=== PATIENT | male | born 1950 | race Caucasian/White ===

== ENCOUNTER → 2017-05-22 | Outpatient (CLI) | payer MEDICARE, OTHER ==
--- NOTE | 2017-05-22 08:08 | CT ---
EXAMINATION TYPE: CT chest wo con DATE OF EXAM: 05/22/2017 COMPARISON: NONE HISTORY: SOB, cough CT DLP: 362.[address] of the chest was performed with lung and mediastinal window settings submitted. The la ck of contrast limits evaluation of the vascular, mediastinal and parenchymal structures including th e upper abdomen. 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 Mild patchy density right lower lobe may reflect underlying pneumoni a. Scattered areas of linear parenchymal scarring. MEDIASTINUM/SARA: Ascending thoracic aortic aneurysm measuring 4.3 cm AP dimension. Mild atheromatous changes noted. Mi ld cardiomegaly seen. No evidence for mediastinal mass. No lymph nodes greater than 1cm. UPPER ABDOMEN: Right-sided renal calculi. Low attenuating lesion left kidney may reflect cysts. OTHER: Scoliotic curvature thoracic spine. IMPRESSION: 1. Patchy density right lower lobe may reflect underlying pneumonia. 2. Asbestos related pleural disease. 3. Ascending thoracic aortic aneurysm.
== END | disposition home or self-care (01) ==
LOC: RADCTMAIN 06:30
PROVIDERS: ATTEND Internal Medicine Pulmonary Disease
DX: J94.8 Other specified pleural conditions (principal); I71.2 Thoracic aortic aneurysm, without rupture; R91.8 Other nonspecific abnormal finding of lung field; R05 Cough
CPT/HCPCS: 71250

== ENCOUNTER 2018-01-16 21:59 | Inpatient (IN) | payer MEDICARE, OTHER ==
[2018-01-16 22:16] LABS: Glucose,Whole Blood 127 mg/dL (75-99)
[2018-01-16] MEDS ORDERED: NITROGLYCERIN SL TABS 0.4 MG TAB SUBLINGUAL PRN (22:27)
[2018-01-16] MEDS ORDERED: ASPIRIN 81 MG PO STA (22:27)
[2018-01-16] MEDS ORDERED: HEPARIN SODIUM,PORCINE 5,000 UNIT/ML 1 ML VIAL IV STA (22:27)
--- NOTE | 2018-01-16 22:29 | ED ---
Weakness HPI - General Chief complaint: Weakness Stated complaint: poss stroke Time Seen by Provider: 01/16/18 22:18 Source: patient, family Mode of arrival: wheelchair Limitations: no limitations - History of Present Illness Initial comments: This patient is 67-year-old man who comes to the hospital because she was having generalized weakness. The patient states that had started earlier today. He also however was noting some substernal chest pain that is been going on since late morning. Patient Denies previous known heart disease. The patient is not able to characterize the pain well. He had not noted any worsening or relieving factors. The pain had been up to moderate intensity however now mild. MD Complaint: generalized weakness -: hour(s) Location: generalized Severity: moderate Consistency: constant Improves with: none Worsens with: none Associated Symptoms: chest pain - Related Data Home Medications Medication Instructions Recorded Confirmed Albuterol Sulfate [Proair Hfa] 2 puff INHALATION RT-Q6H PRN 01/16/18 01/16/18 Ascorbic Acid [Vitamin C] 500 mg PO DAILY 01/16/18 01/16/18 Allergies Allergy/AdvReac Type Severity Reaction Status Date / Time No Known Allergies Allergy Verified 01/16/18 22:38 Review of Systems ROS Statement: Those systems with pertinent positive or pertinent negative responses have been documented in the HPI. ROS Other: All systems not noted in ROS Statement are negative. Constitutional: Reports: fever, weakness (Generalized). Denies: chills Respiratory: Denies: cough, dyspnea, wheezes, hemoptysis Cardiovascular: Reports: as per HPI, chest pain. Denies: palpitations, orthopnea, edema, syncope Gastrointestinal: Denies: abdominal pain, nausea, vomiting, diarrhea Genitourinary: Denies: dysuria, hematuria Musculoskeletal: Denies: back pain Skin: Denies: rash Neurological: Denies: headache, weakness, numbness Past Medical History Past Medical History: Prostate Disorder History of Any Multi-Drug Resistant Organisms: None Reported Past Surgical History: No Surgical Hx Reported Past Psychological History: No Psychological Hx Reported Smoking Status: Current every day smoker Past Alcohol Use History: None Reported Past Drug Use History: None Reported General Exam Limitations: no limitations General appearance: alert, in no apparent distress Head exam: Present: atraumatic Eye exam: Present: normal appearance. Absent: scleral icterus, conjunctival injection ENT exam: Present: normal oropharynx Neck exam: Present: normal inspection, full ROM Respiratory exam: Present: normal lung sounds bilaterally. Absent: respiratory distress, wheezes, rales, rhonchi, stridor Cardiovascular Exam: Present: regular rate, normal rhythm, systolic murmur ( Grade 2/6 systolic ejection murmur). Absent: diastolic murmur, rubs, gallop GI/Abdominal exam: Present: soft. Absent: distended, tenderness, guarding, rebound, mass Extremities exam: Present: normal inspection, normal capillary refill. Absent: pedal edema, calf tenderness Back exam: Present: normal inspection. Absent: CVA tenderness (R), CVA tenderness (L) Neurological exam: Present: alert, oriented X3, CN II-XII intact. Absent: motor sensory deficit Skin exam: Present: warm, dry, intact, normal color. Absent: rash Course Vital Signs 01/16/18 01/16/18 01/16/18 22:03 22:32 22:35 Temperature 100.6 F H 102.2 F H Pulse Rate 93 96 Respiratory 16 18 Rate Blood Pressure 110/70 115/63 O2 Sat by Pulse 96 98 Oximetry 01/16/18 01/16/18 01/16/18 22:40 22:49 22:53 Temperature Pulse Rate 90 90 95 Respiratory 18 18 18 Rate Blood Pressure 99/69 114/61 107/65 O2 Sat by Pulse 98 98 99 Oximetry - Reevaluation(s) Reevaluation #1: 01/16/18 23:00 Patient is 67-year-old man complaining of generalized weakness and has had some chest pain throughout the day. The patient's initial ECG is concerning for inferior lead ST elevations. There are also some septal ST depressions. There is no old ECG for comparison. Given the pain and ECG, I discussed the case with Dr. Rodriguez, the cellar pumper on-call and have activated the Double Cutter. On reevaluation, the patient is now stating he has had resolution of the pain. His repeat vital signs do show a fever, and I have added orders for lactic acid and started Rocephin as the patient may have an infiltrate on the chest x-ray. EKG Findings - EKG Comments: EKG Findings:: Patient's 12-lead ECG shows inferior ST elevations with depressions in V1 and V2. - EKG Results: EKG: interpreted by HAJA, sinus rhythm (Rate 96 bpm) - Blocks, Abrams, Hypertrophy, ST Abn: QRS axis and voltage: left axis deviation (-30 to -90) - AR, Pacemaker, Normal: Myocardial infarction: inferior AR (acute or recent) Medical Decision Making - Medical Decision Making Patient is 67-year-old man presenting with generalized weakness, but also with chest pain on the review of systems. The patient does appear to have STEMI criteria. Case discussed with cardiology and also with the admitting physician. Results discussed with patient and family. - Lab Data Result diagrams: 01/16/18 22:22 01/16/18 22:22 Lab Results 01/16/18 01/16/18 01/16/18 Range/Units 22:12 22:22 22:22 WBC 20.2 H (3.8-10.6) k/uL RBC 4.65 (4.30-5.90) m/uL Hgb 14.8 (13.0-17.5) gm/dL Hct 45.0 (39.0-53.0) % MCV 96.8 (80.0-100.0) fL MCH 31.8 (25.0-35.0) pg MCHC 32.8 (31.0-37.0) g/dL RDW 13.2 (11.5-15.5) % Plt Count 274 (150-450) k/uL Neutrophils % 86 % Lymphocytes % 5 % Monocytes % 6 % Eosinophils % 0 % Basophils % 0 % Neutrophils # 17.4 H (1.3-7.7) k/uL Lymphocytes # 1.0 (1.0-4.8) k/uL Monocytes # 1.3 H (0-1.0) k/uL Eosinophils # 0.0 (0-0.7) k/uL Basophils # 0.0 (0-0.2) k/uL PT (9.0-12.0) sec INR (<1.2) APTT (22.0-30.0) sec Sodium 137 (137-145) mmol/L Potassium 4.3 (3.5-5.1) mmol/L Chloride 101 (98-107) mmol/L Carbon Dioxide 26 (22-30) mmol/L Anion Gap 10 mmol/L BUN 21 H (9-20) mg/dL Creatinine 1.04 (0.66-1.25) mg/dL Est GFR (CKD-EPI)AfAm 85 (>60 ml/min/1.73 sqM) Est GFR (CKD-EPI)NonAf 73 (>60 ml/min/1.73 sqM) Glucose 113 H (74-99) mg/dL POC Glucose (mg/dL) 127 H (75-99) mg/dL POC Glu Tow Driver ID Griffin Gill Plasma Lactic Acid Rigo (0.7-2.0) mmol/L Calcium 9.1 (8.4-10.2) mg/dL Total Bilirubin 1.4 H (0.2-1.3) mg/dL AST 186 H (17-59) U/L ALT 46 (21-72) U/L Alkaline Phosphatase 75 (38-126) U/L Total Creatine Kinase (55-170) U/L CK-MB (CK-2) (0.0-2.4) ng/mL CK-MB (CK-2) Rel Index Troponin I (0.000-0.034) ng/mL Total Protein 6.7 (6.3-8.2) g/dL Albumin 3.9 (3.5-5.0) g/dL 01/16/18 01/16/18 01/16/18 Range/Units 22:22 22:22 22:22 WBC (3.8-10.6) k/uL RBC (4.30-5.90) m/uL Hgb (13.0-17.5) gm/dL Hct (39.0-53.0) % MCV (80.0-100.0) fL MCH (25.0-35.0) pg MCHC (31.0-37.0) g/dL RDW (11.5-15.5) % Plt Count (150-450) k/uL Neutrophils % % Lymphocytes % % Monocytes % % Eosinophils % % Basophils % % Neutrophils # (1.3-7.7) k/uL Lymphocytes # (1.0-4.8) k/uL Monocytes # (0-1.0) k/uL Eosinophils # (0-0.7) k/uL Basophils # (0-0.2) k/uL PT 10.9 (9.0-12.0) sec INR 1.1 (<1.2) APTT 27.2 (22.0-30.0) sec Sodium (137-145) mmol/L Potassium (3.5-5.1) mmol/L Chloride (98-107) mmol/L Carbon Dioxide (22-30) mmol/L Anion Gap mmol/L BUN (9-20) mg/dL Creatinine (0.66-1.25) mg/dL Est GFR (CKD-EPI)AfAm (>60 ml/min/1.73 sqM) Est GFR (CKD-EPI)NonAf (>60 ml/min/1.73 sqM) Glucose (74-99) mg/dL POC Glucose (mg/dL) (75-99) mg/dL POC Glu Tow Driver ID Plasma Lactic Acid Rigo 1.3 (0.7-2.0) mmol/L Calcium (8.4-10.2) mg/dL Total Bilirubin (0.2-1.3) mg/dL AST (17-59) U/L ALT (21-72) U/L Alkaline Phosphatase (38-126) U/L Total Creatine Kinase 822 H (55-170) U/L CK-MB (CK-2) 39.3 H (0.0-2.4) ng/mL CK-MB (CK-2) Rel Index 4.8 Troponin I 30.400 H* (0.000-0.034) ng/mL Total Protein (6.3-8.2) g/dL Albumin (3.5-5.0) g/dL Critical Care Time Critical Care Time: Yes (35 minutes) Disposition Clinical Impression: Acute ST elevation myocardial infarction (STEMI), Leukocytosis Disposition: ADMITTED IP TO THIS HOSP Condition: Serious
[2018-01-16] MEDS ORDERED: HEPARIN SOD,PORK IN 0.45% NACL 25,000 UNIT in 0.45% NACL 1 500ML.BAG IV SCH (22:30)
[2018-01-16] MEDS ORDERED: ACETAMINOPHEN TAB 325 MG TAB PO STA (22:36)
[2018-01-16] MEDS ORDERED: SODIUM CHLORIDE 0.9% 500 ML IV STA (22:36)
[2018-01-16 22:38] LABS: Basophils % (A) 0 %; Eosinophils % (A) 0 %; HGB 14.8 gm/dL (13.0-17.5); Lymphocytes % (A) 5 %; MCH 31.8 pg (25.0-35.0); MCHC 32.8 g/dL (31.0-37.0); MCV 96.8 fL (80.0-100.0); Mean Platelet Volume 6.5; Monocytes # (A) 1.3 k/uL (0-1.0); Monocytes % (A) 6 %; Neutrophils # (A) 17.4 k/uL (1.3-7.7); Neutrophils % (A) 86 %; Platelet Count 274 k/uL (150-450); RBC 4.65 m/uL (4.30-5.90); RDW 13.2 % (11.5-15.5); WBC 20.2 k/uL (3.8-10.6)
[2018-01-16 22:45] LABS: Albumin 3.9 g/dL (3.5-5.0); Calcium 9.1 mg/dL (8.4-10.2); Potassium 4.3 mmol/L (3.5-5.1); Total Bilirubin 1.4 mg/dL (0.2-1.3); Total Protein 6.7 g/dL (6.3-8.2)
[2018-01-16 22:48] LABS: INR 1.1 (<1.2); Partial Thromboplastin Time 27.2 sec (22.0-30.0); Prothrombin Time 10.9 sec (9.0-12.0)
--- NOTE | 2018-01-16 22:49 | XR ---
EXAMINATION TYPE: XR chest 1V portable DATE OF EXAM: 01/16/2018 COMPARISON: NONE HISTORY: Chest pain TECHNIQUE: Single frontal view of the chest is obtained. FINDINGS: There is blunting of costophrenic angles. There is pulmonary vascular congestion. There is some infiltrate at the lung bases. There are chest leads. IMPRESSION: There is probably mild heart failure. Small pleural effusions and mild basilar pulmonary infiltrates.
[2018-01-16] MEDS ORDERED: cefTRIAXone IN SWFI 1,000 MG/10 ML SYRINGE IVP STA (22:52)
[2018-01-16] MEDS ORDERED: LIDOCAINE 1% INJ 10MG/ML (20 ML MDV) ONE (22:57)
[2018-01-16 23:09] LABS: Creatine Kinase MB 39.3 ng/mL (0.0-2.4)
[2018-01-16] MEDS ORDERED: VERAPAMIL 2.5 MG/ML 2 ML AMP ONE (23:09)
[2018-01-16 23:15] LABS: Troponin I 30.4 ng/mL (0.000-0.034)
[2018-01-16] MEDS ORDERED: LIDOCAINE 1% INJ 10MG/ML (20 ML MDV) SQ ONE (23:15)
[2018-01-16] MEDS ORDERED: VERAPAMIL SYRINGE (5 MG/10 ML) INTRAARTER ONE (23:18)
[2018-01-16] MEDS ORDERED: SODIUM CHLORIDE 0.9% 1,000 ML IV ONE (23:19)
[2018-01-16] MEDS ORDERED: BIVALIRUDIN 250 MG in SODIUM CHLORIDE 0.9% 50 ML IV ONE (23:25)
[2018-01-16] MEDS ORDERED: BIVALIRUDIN BOLUS 250 MG/50 ML IV ONE (23:25)
[2018-01-16] MEDS ORDERED: TICAGRELOR 90 MG TAB ONE (23:27)
[2018-01-16] MEDS ORDERED: TICAGRELOR 90 MG TAB PO ONE (23:30)
[2018-01-16] MEDS ORDERED: IOPAMIDOL-370 125ML BTL INJ ONE (23:44)
[2018-01-16] MEDS ORDERED: NITROGLYCERIN 1000MCG/10ML SYRINGE INTRACORON ONE (23:45)
[2018-01-17] MEDS ORDERED: IOPAMIDOL-370 100ML BTL INJ ONE ×2 (00:11)
[2018-01-17] MEDS ORDERED: ATROPINE SULFATE 0.1 MG/ML 10ML SYRINGE IV PRN (00:12)
[2018-01-17] MEDS ORDERED: ZOLPIDEM 5 MG TAB PO PRN (00:12)
[2018-01-17] MEDS ORDERED: RX INFO: IV CONTRAST WAS GIVEN 1 EACH MISC MISCELLANE PRN (00:12)
[2018-01-17] MEDS ORDERED: NITROGLYCERIN SL TABS 0.4 MG TAB SUBLINGUAL PRN (00:12)
[2018-01-17] MEDS ORDERED: MAG HYDROX/AL HYDROX/SIMETH 30 ML CUP PO PRN (00:12)
[2018-01-17] MEDS ORDERED: SODIUM CHLORIDE 0.9% 1,000 ML IV SCH (00:15)
[2018-01-17 00:36] LABS: Glucose,Whole Blood 123 mg/dL (75-99)
[2018-01-17 01:43] VITALS: BMI 27.3
[2018-01-17 05:10] LABS: Basophils # (A) 0.1 k/uL (0-0.2); Basophils % (A) 0 %; Eosinophils % (A) 0 %; HGB 14.1 gm/dL (13.0-17.5); Lymphocytes # (A) 1.6 k/uL (1.0-4.8); Lymphocytes % (A) 9 %; MCH 31.3 pg (25.0-35.0); MCHC 31.4 g/dL (31.0-37.0); MCV 99.5 fL (80.0-100.0); Mean Platelet Volume 6.5; Monocytes # (A) 1.4 k/uL (0-1.0); Monocytes % (A) 8 %; Neutrophils # (A) 13.9 k/uL (1.3-7.7); Neutrophils % (A) 80 %; Platelet Count 252 k/uL (150-450); RBC 4.52 m/uL (4.30-5.90); RDW 13.3 % (11.5-15.5); WBC 17.5 k/uL (3.8-10.6)
[2018-01-17 05:43] LABS: Creatine Kinase MB 30.4 ng/mL (0.0-2.4)
--- NOTE | 2018-01-17 06:48 | CONS ---
CONSULTATION Mr. Nix is a 67-year-old male who was scheduled to be seen by Dr. Urias for the first time in a few weeks who presented to the emergency room with generalized weakness and episode of chest discomfort. The discomfort started today and at the time my evaluation, it got better. His EKG showed ST-segment elevation in the inferior leads with QS pattern as well as ST depression in the anterior precordial leads with prominent R wave. The patient denies any prior cardiac history, although he has not seen a physician in a while. He denies any prior episode of chest discomfort. He denies any associated dyspnea, palpitation, or syncope. He has occasional peripheral edema. No PND or orthopnea. His coronary risk factors positive for smoking. He denies any history of hypertension or diabetes and his lipid profile is not available. His medications are none. SOCIAL HISTORY: He drinks caffeine, but no alcohol. REVIEW OF SYSTEMS: RESPIRATORY SYSTEM: No history of documented asthma, emphysema or bronchitis. GI SYSTEM: No recent GI bleeding. No peptic ulcer disease. SYSTEM: No dysuria or hematuria. NERVOUS SYSTEM: No stroke or seizure. PHYSICAL EXAMINATION: A 67-year-old male, alert, oriented, in no apparent distress. Blood pressure 140/70 with the heart rate in the 90s. HEAD: Normocephalic. EYES: Sclerae anicteric. NECK: Good upstroke. No bruit. No jugular venous distention. LUNGS: Decreased air exchange. No wheezes. HEART: Regular rate and rhythm S1, S2. No S3. No rub. ABDOMEN: Soft, nontender. Positive bowel sounds. No organomegaly. EXTREMITIES: No edema. Intact distal pulses. EKG revealed sinus mechanism, rate of 94, left axis deviation, QS pattern in the inferior leads with early transition and ST depression in the anterior precordial leads consistent with inferoposterior myocardial infarction. IMPRESSION: 1. Acute inferior posterior myocardial infarction. According to the symptoms, the pain started today, although his EKG shows prominent Q wave. 2. Chronic tobacco use. RECOMMENDATION: In view of the presentation of his symptoms, I have recommended proceeding with cardiac catheterization to assess the status and guide the treatment. The rationale behind the procedure as well as risks and complications were discussed with the patient who is in full understanding and agreement. Thank you for this consult. We will follow with you. MMODL / IJN: [id number] /
--- NOTE | 2018-01-17 07:40 | CC ---
CARDIAC CATHETERIZATION REPORT Mr. Nix is a 67-year-old male with no prior documented history of coronary artery disease who presented to the emergency room with symptoms of chest discomfort and generalized weakness. His EKG was consistent with inferoposterior myocardial infarction. In view of that, recommendation was made regarding cardiac catheterization. The procedure as well as the risks and the complications were discussed with the patient who is in full understanding and agreement. Of note, the patient's troponin was over 30 on presentation. PROCEDURE: Patient was brought to recyclable materials sorter after receiving fentanyl and Benadryl and achieving moderate conscious sedated state. Using Xylocaine anesthesia in the Seldinger technique, a 6-Mosotho sheath was introduced in the right radial artery. Selective angiography of right coronary artery was performed using a 6-Mosotho FR3.5 guiding catheter. Subsequently angioplasty and stenting of the right coronary was performed. Following that, selective right and left angiography performed using 5-Mosotho 3.5 bend left Gypsy catheter. Images of the left coronary system was performed. Following that, a 5-Mosotho tight pigtail catheter introduced in the left ventricle and pressures were calculated. Following that, catheter and sheath were removed. Hemostasis was obtained with deployment of a TR band. There was no immediate complication. Patient was returned to his room in stable condition. FINDINGS: LEFT MAIN: This is a large-sized vessel trifurcating left circumflex, left anterior descending artery and ramus intermedius. Left main coronary artery has no evidence of obstructive coronary artery disease. LEFT ANTERIOR DESCENDING ARTERY: This is a large-sized vessel reaching to the apex with a wraparound apex segment giving rise to 2 diagonal branches of small to moderate caliber. The left anterior descending artery in mid segment at the takeoff of the second diagonal branch has a plaque of 20% to 30%. The rest of the vessel has no high- grade stenosis. LEFT CIRCUMFLEX: This is a nondominant vessel giving rise to a large obtuse marginal branch. The left circumflex and its branches have no evidence of obstructive coronary artery disease. RAMUS INTERMEDIUS: This is a large-sized vessel reaching to the apical lateral wall that has no evidence of high-grade stenosis. RIGHT CORONARY ARTERY: This is a large dominant vessel bifurcating distally PDA and posterolateral segment and branches. Prior to the bifurcation, there is a 99% stenosis with slow antegrade flow. LEFT VENTRICULOGRAM: Left ventriculogram is not performed. HEMODYNAMICS: There was no gradient across the aortic valve. The left ventricular end- diastolic pressure was 16 to 20 mmHg. CONCLUSION: 1. 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 2. Mild disease in the left anterior descending artery. RECOMMENDATION: In view of finding anatomy, I have recommended proceeding with angioplasty and stenting of the right coronary artery. The procedure as well as the risks and the complications were discussed with the patient who is in full understanding and agreement. MMODL / IJN: [id number] /
--- NOTE | 2018-01-17 07:49 | PTCA ---
PERCUTANEOUSTRANS CORORONARY ANGIOGRAPHY Mr. Nix is a 67-year-old male who presented with an acute inferoposterior myocardial infarction, underwent cardiac catheterization, was found to have a subtotally occluded right coronary artery. In view of that, recommendation was made regarding angioplasty and stenting. The procedure as well as the risks and the complications were discussed with the patient who is in full understanding and agreement. PROCEDURE: Using the 6-Moldovan FR3.5 guiding catheter, a 0.014 balanced medium weight J- wire was advanced to the distal right coronary artery. Subsequently a whisper 0.014 J wire was advanced across the lesion and positioned in the PLV. A 3.0 x 12 mm Trek balloon was advanced, but because of the poor backup, the wire, the balloon and the guiding catheter were removed and a 6-Moldovan right Ikari guiding catheter introduced into system. After cannulating the ostium of the right coronary artery, the 0.014 balanced medium weight J-wire was advanced in the system, positioned distally then the 0.014 whisper J-wire was advanced in position in the PLV. Following that, the 3.0 x 12 mm Trek balloon was advanced and 2 inflations at maximum of 8 atmospheres were done. Following that the balloon was removed and a 3.5 x 18 mm Xience Alpine stent was deployed, postdilated at 14 atmospheres. Following that, the balloon was removed and a 3.5 x 8 mm Xience Alpine stent was deployed distal to the first one, postdilated at 14 atmospheres. Subsequently, an inflation overlap segment at 16 atmospheres was done. Following that and after appropriate wait, the balloon and the guidewire were withdrawn back in the guiding catheter. Images were obtained and repeated. Those images reveal stable successful stenting. At that point, the guiding catheter, the balloon and the guidewire were removed. Images of the left coronary system as well measurement of the left ventricular end-diastolic pressure were obtained. Following that, catheter and sheath were removed. Hemostasis was obtained with deployment of a TR band. There was no immediate complication. Patient is returned to his room in stable condition. He had no chest discomfort at the end of the procedure and no significant new EKG changes. Of note, he received Angiomax per protocol as well as oral loading dose of Brilinta. RESULTS: Successful stenting of the distal right coronary artery with reduction of stenosis from 99% to 0%. RECOMMENDATION: Patient will be continued on aspirin, Brilinta, beta adam, and statin. The importances of dual antiplatelet treatment were discussed with the patient and his family who are in full understanding and agreement. Duration procedure is 53 minutes. ANTONIO / JIMY: [id number] / ROMERO
[2018-01-17 08:16] LABS: Anion Gap 9 mmol/L; Blood Urea Nitrogen 18 mg/dL (9-20); Calcium 8.3 mg/dL (8.4-10.2); Carbon Dioxide 20 mmol/L (22-30); Chloride 107 mmol/L (98-107); Glucose 97 mg/dL (74-99); Sodium 136 mmol/L (137-145)
[2018-01-17] MEDS: METOPROLOL TARTRATE 25 MG TAB PO SCH ×2 (08:55→20:05)
[2018-01-17] MEDS: ASPIRIN 81 MG PO SCH (08:55)
[2018-01-17] MEDS: SPIRONOLACTONE 25 MG TAB PO SCH (08:55)
[2018-01-17] MEDS: TICAGRELOR 90 MG TAB PO SCH ×2 (08:56→20:05)
--- NOTE | 2018-01-17 12:13 | ECHOF ---
Referral Reason:mi MEASUREMENTS -------- HEIGHT: 172.7 cm WEIGHT: 81.6 kg BP: 98/60 RVIDd: 2.6 cm (< 3.3) IVSd: 1.1 cm (0.6 - 1.1) LVIDd: 5.6 cm (3.9 - 5.3) LVPWd: 1.2 cm (0.6 - 1.1) IVSs: 1.7 cm LVIDs: 4.2 cm LVPWs: 1.7 cm LA Diam: 3.4 cm (2.7 - 3.8) LAESV Index (A-L): 29.41 ml/m Ao Diam: 3.7 cm (2.0 - 3.7) AV Cusp: 1.9 cm (1.5 - 2.6) MV EXCURSION: 17.354 mm (> 18.000) MV EF SLOPE: 91 mm/s (70 - 150) EPSS: 0.5 cm MV E Daniel: 0.96 m/s MV DecT: 185 ms MV A Daniel: 0.89 m/s MV E/A Ratio: 1.07 FINDINGS -------- Sinus rhythm. This was a technically good study. The left ventricular size is normal. There is borderline concentric left ventricular hypertrophy. Overall left ventricular systolic function is low-normal with, an EF between 50 - 55 %. Inferiorla teral Hypokinesis The right ventricle is normal in size. LA is midly dilated 29-33ml/m2. The right atrium is normal in size. There is mild aortic valve sclerosis. Mild mitral annular calcification present. There is trace mitral regurgitation. The tricuspid valve appears structurally normal. Trace/mild (physiologic) pulmonic regurgitation. The aortic root size is normal. Normal inferior vena cava with normal inspiratory collapse consistent with estimated right atrial pre ssure of 5 mmHg. The pericardium is normal. CONCLUSIONS -------- 1. Sinus rhythm. 2. This was a technically good study. 3. The left ventricular size is normal. 4. There is borderline concentric left ventricular hypertrophy. 5. Overall left ventricular systolic function is low-normal with, an EF between 50 - 55 %. 6. Inferiorlateral Hypokinesis 7. The right ventricle is normal in size. 8. LA is midly dilated 29-33ml/m2. 9. The right atrium is normal in size. 10. There is mild aortic valve sclerosis. 11. Mild mitral annular calcification present. 12. There is trace mitral regurgitation. 13. The tricuspid valve appears structurally normal. 14. Trace/mild (physiologic) pulmonic regurgitation. 15. The aortic root size is normal. 16. Normal inferior vena cava with normal inspiratory collapse consistent with estimated right atrial pressure of 5 mmHg. 17. The pericardium is normal. CHROME WORKER: Darlene Morales RDCS
[2018-01-17 12:20] LABS: Appearance,Urine Clear (Clear); Bilirubin,Urine Negative (Negative); Blood,Urine Trace (Negative); Color,Urine Yellow; Glucose,Urine (UA) Negative (Negative); Ketones,Urine Trace (Negative); Leukocyte Esterase,Urine Small (Negative); Mucus,Urine Rare /hpf; Nitrite,Urine Negative (Negative); PH, Urine 5.5 (5.0-8.0); Protein,Urine 1+ (Negative); RBC,Urine 2 /hpf (0-5); Specific Gravity,Urine 1.041 (1.001-1.035); Squamous Epithelial Cell,Urine <1 /hpf (0-4); Urobilinogen,Urine <2.0 mg/dL (<2.0); WBC,Urine 2 /hpf (0-5)
[2018-01-17] MEDS: LISINOPRIL 2.5 MG TAB PO SCH ×2 (12:43→22:44)
--- NOTE | 2018-01-17 12:46 | PN ---
PROGRESS NOTE Mr. Nix underwent stenting of right coronary artery by Dr. Rodriguez last night. He is in sinus rhythm, comfortable, resting. Right groin is clean and dry. S1, S2 heard normally. Lungs are clear. Abdomen and lower extremity exam unchanged. Plan is to continue current medications, increase activity and move him to telemetry tomorrow. He has no significant disease in other vessels. Troponins up to 30. We will get additional troponin later this evening. MMODL / IJN: [id number] /
[2018-01-17] MEDS: ATORVASTATIN 80 MG TAB PO SCH (20:05)
--- NOTE | 2018-01-17 20:23 | P.HPIM ---
History of Present Illness this is a pleasant 67 yo M [facility] of prostate problem who presents yesterday to ED complaining from generalized weakness, "my legs were crumbling". he had to use the walker to get into his car and wheelchair to get into the hospital. in the ED pt was found to have STEMI with inferior MO pt has been evaluated by cardiolgy root and he already underwent cardiac cath by the time i saw him in the ICU, pt was chest pain free, no dypsnea , no change in urine or bowel habits and no fever . his elida were 30,000 high and now are trending down to 24, 600. he was leukocytosis . CXR showing possible basilar infiltrates medication list;: asa, brilinta, lipitor and metoprolol , lisinopril and aldactone, ambien , nitroglycerin. Review of Systems CONSTITUTIONAL: No fever, no malaise, no fatigue. HEENT: No recent visual problems or hearing problems. Denied any sore throat. CARDIOVASCULAR: No orthopnea, PND, no palpitations, no syncope. PULMONARY: No shortness of breath, no cough, no hemoptysis. GASTROINTESTINAL: No diarrhea, no nausea, no vomiting, no abdominal pain. Normoactive bowel sounds. NEUROLOGICAL: No headaches, no weakness, no numbness. HEMATOLOGICAL: Denies any bleeding or petechiae. GENITOURINARY: Denies any burning micturition, frequency, or urgency. MUSCULOSKELETAL/RHEUMATOLOGICAL: Denies any joint pain, swelling, or any muscle pain. ENDOCRINE: Denies any polyuria or polydipsia. Past Medical History Past Medical History: Prostate Disorder History of Any Multi-Drug Resistant Organisms: None Reported Past Surgical History: No Surgical Hx Reported Past Psychological History: No Psychological Hx Reported Smoking Status: Current every day smoker Past Alcohol Use History: None Reported Past Drug Use History: None Reported Medications and Allergies Home Medications Medication Instructions Recorded Confirmed Type Albuterol Sulfate [Proair Hfa] 2 puff INHALATION RT-Q6H PRN 01/16/18 01/16/18 History Ascorbic Acid [Vitamin C] 500 mg PO DAILY 01/16/18 01/16/18 History Finasteride [Proscar] 5 mg PO DAILY 01/17/18 01/17/18 History Oxybutynin Chloride 5 mg PO BID 01/17/18 01/17/18 History Allergies Allergy/AdvReac Type Severity Reaction Status Date / Time No Known Allergies Allergy Verified 01/16/18 22:38 Physical Exam Vitals: Vital Signs Temp Pulse Resp BP Pulse Ox 01/17/18 10:00 82 20 94/60 98 01/17/18 09:00 97 32 H 102/58 97 01/17/18 08:00 99.5 F 98 29 H 111/80 98 01/17/18 07:00 99.5 F 78 10 L 97/60 99 01/17/18 06:00 76 15 87/59 98 01/17/18 05:00 73 20 98/60 97 01/17/18 04:00 98.2 F 71 17 89/61 99 01/17/18 03:00 74 21 82/59 97 01/17/18 02:00 64 7 L 81/56 99 01/17/18 01:00 81 11 L 104/58 96 01/17/18 00:32 89 01/16/18 22:53 95 18 107/65 99 01/16/18 22:49 90 18 114/61 98 01/16/18 22:40 90 18 99/69 98 01/16/18 22:35 102.2 F H 01/16/18 22:32 96 18 115/63 98 01/16/18 22:03 100.6 F H 93 16 110/70 96 Intake and Output 01/16/18 01/17/18 01/17/18 22:59 06:59 14:59 Intake Total 832.6 880 Output Total 900 650 Balance -67.4 230 Intake: IV 832.6 400 Sodium Chloride 0.9% 1, 400 400 000 ml @ 100 mls/hr IV . Q10H [facility] Rx#:[id number] Oral 480 Output: Urine 900 650 Other: Voiding Method Urinal Urinal Weight 81.647 kg 81.64 kg GENERAL: The patient is alert and oriented x3, not in any acute distress. Well developed, well nourished. HEENT: Pupils are round and equally reacting to light. EOMI. No scleral icterus. No conjunctival pallor. Normocephalic, atraumatic. No pharyngeal erythema. No thyromegaly. CARDIOVASCULAR: S1 and S2 present. No murmurs, rubs, or gallops. PULMONARY: Chest is clear to auscultation, no wheezing or crackles. ABDOMEN: Soft, nontender, nondistended, normoactive bowel sounds. No palpable organomegaly. MUSCULOSKELETAL: No joint swelling or deformity. EXTREMITIES: No cyanosis, clubbing, or pedal edema. NEUROLOGICAL: Gross neurological examination did not reveal any focal deficits. SKIN: No rashes. Results CBC & Chem 7: 01/17/18 04:20 01/17/18 04:20 Labs: Abnormal Lab Results - Last 24 Hours (Table) 01/16/18 01/16/18 01/16/18 Range/Units 22:12 22:22 22:22 WBC 20.2 H (3.8-10.6) k/uL Neutrophils # 17.4 H (1.3-7.7) k/uL Monocytes # 1.3 H (0-1.0) k/uL Sodium (137-145) mmol/L Carbon Dioxide (22-30) mmol/L BUN 21 H (9-20) mg/dL Glucose 113 H (74-99) mg/dL POC Glucose (mg/dL) 127 H (75-99) mg/dL Calcium (8.4-10.2) mg/dL Total Bilirubin 1.4 H (0.2-1.3) mg/dL AST 186 H (17-59) U/L Total Creatine Kinase (55-170) U/L CK-MB (CK-2) (0.0-2.4) ng/mL Troponin I (0.000-0.034) ng/mL 01/16/18 01/17/18 01/17/18 Range/Units 22:22 00:33 04:20 WBC (3.8-10.6) k/uL Neutrophils # (1.3-7.7) k/uL Monocytes # (0-1.0) k/uL Sodium (137-145) mmol/L Carbon Dioxide (22-30) mmol/L BUN (9-20) mg/dL Glucose (74-99) mg/dL POC Glucose (mg/dL) 123 H (75-99) mg/dL Calcium (8.4-10.2) mg/dL Total Bilirubin (0.2-1.3) mg/dL AST (17-59) U/L Total Creatine Kinase 822 H (55-170) U/L CK-MB (CK-2) 39.3 H 30.4 H (0.0-2.4) ng/mL Troponin I 30.400 H* 30.000 H* (0.000-0.034) ng/mL 01/17/18 01/17/18 Range/Units 04:20 04:20 WBC 17.5 H (3.8-10.6) k/uL Neutrophils # 13.9 H (1.3-7.7) k/uL Monocytes # 1.4 H (0-1.0) k/uL Sodium 136 L (137-145) mmol/L Carbon Dioxide 20 L (22-30) mmol/L BUN (9-20) mg/dL Glucose (74-99) mg/dL POC Glucose (mg/dL) (75-99) mg/dL Calcium 8.3 L (8.4-10.2) mg/dL Total Bilirubin (0.2-1.3) mg/dL AST (17-59) U/L Total Creatine Kinase (55-170) U/L CK-MB (CK-2) (0.0-2.4) ng/mL Troponin I (0.000-0.034) ng/mL Thrombosis Risk Factor Assmnt - Choose All That Apply Each Factor Represents 1 point: Acute MO Other Risk Factors: Yes Each Risk Factor Represents 2 Points: Age 61-74 years Other congenital or acquired thrombophilia - If yes, enter type in comment: No Thrombosis Risk Factor Assessment Total Risk Factor Score: 3 Thrombosis Risk Factor Assessment Level: Moderate Risk Assessment and Plan Assessment: inferior MO with STEMI, status post cardiac cath and stenting of RCA community acquired pna leukcytosis , secondary to above mild hyponatremia Plan: pt p/w inferoir wall STEMI and pna. c/w antibotic , ceftriaxone and doxycycline. c/w same treatment .. c/w symptomatic treatment . monitor vital and labs. cardiology input is appreciated , pt is s/p cardiac cath and he will need to continue on continue with asa, brilinta, statin and beta-adam. continue with lisinopril and aldactone for better blood pressure control. GI and DVT prophylaxis , ambien for insomina. further recommendation is based upon the clinical course of the pt DVT prophylaxis aspirin and brilinta GI prophylaxis pepcid
[2018-01-17] MEDS: DOXYCYCLINE 100 MG in SODIUM CHLORIDE 0.9% 100 ML IVPB SCH (21:39)
[2018-01-17] MEDS: FAMOTIDINE 20 MG/2 ML VIAL IV SCH (21:39)
[2018-01-18] MEDS ORDERED: DEXTROSE 5%-0.9% NACL 1,000 ML IV SCH (00:30)
[2018-01-18] MEDS ORDERED: ACETAMINOPHEN TAB 325 MG TAB PO PRN (02:09)
[2018-01-18 03:34] LABS: Basophils % (A) 0 %; Eosinophils # (A) 0.1 k/uL (0-0.7); Eosinophils % (A) 1 %; HCT 40.1 % (39.0-53.0); HGB 12.9 gm/dL (13.0-17.5); Lymphocytes # (A) 1.6 k/uL (1.0-4.8); Lymphocytes % (A) 11 %; MCH 31.9 pg (25.0-35.0); MCHC 32.2 g/dL (31.0-37.0); Mean Platelet Volume 6.4; Monocytes # (A) 0.9 k/uL (0-1.0); Monocytes % (A) 6 %; Neutrophils % (A) 80 %; Platelet Count 258 k/uL (150-450); RBC 4.05 m/uL (4.30-5.90); RDW 13.4 % (11.5-15.5)
[2018-01-18 03:44] LABS: ALT 36 U/L (21-72); AST 77 U/L (17-59); Albumin 2.7 g/dL (3.5-5.0); Alkaline Phosphatase 64 U/L (38-126); Anion Gap 5 mmol/L; Bilirubin, Delta 0.3 mg/dL (0.0-0.2); Bilirubin,Unconjugated 0.4 mg/dL (0.0-1.1); Blood Urea Nitrogen 13 mg/dL (9-20); Carbon Dioxide 22 mmol/L (22-30); Chloride 108 mmol/L (98-107); Cholesterol 112 mg/dL (<200); Glucose 118 mg/dL (74-99); HDL Cholesterol 31 mg/dL (40-60); LDL Cholesterol,Calculated 64 mg/dL (0-99); Magnesium 1.9 mg/dL (1.6-2.3); Potassium 3.9 mmol/L (3.5-5.1); Sodium 135 mmol/L (137-145); Total Bilirubin 0.7 mg/dL (0.2-1.3); Triglycerides 85 mg/dL (<150)
[2018-01-18 04:32] LABS: Appearance,Urine Clear (Clear); Bilirubin,Urine Negative (Negative); Blood,Urine Negative (Negative); Color,Urine Yellow; Glucose,Urine (UA) Negative (Negative); Ketones,Urine Negative (Negative); Leukocyte Esterase,Urine Negative (Negative); Nitrite,Urine Negative (Negative); Protein,Urine Trace (Negative); Specific Gravity,Urine 1.012 (1.001-1.035); Urobilinogen,Urine <2.0 mg/dL (<2.0)
[2018-01-18] MEDS ORDERED: Potassium Replacement Protocol 1 EACH MISC MISCELLANE PRN (05:23)
[2018-01-18] MEDS ORDERED: Magnesium Replacement Protocol 1 EACH MISC MISCELLANE PRN (05:23)
[2018-01-18] MEDS: MAGNESIUM SULFATE-D5W PMX 1 GM in DEXTROSE/WATER 1 100ML.BAG IVPB SCH ×2 (05:43→07:23)
[2018-01-18] MEDS ORDERED: POTASSIUM CHLORIDE ER 20 MEQ TAB.ER PO SCH (07:00)
--- NOTE | 2018-01-18 07:16 | XR ---
EXAMINATION TYPE: XR chest 1V portable DATE OF EXAM: 01/18/2018 CLINICAL HISTORY: Difficulty breathing progress study. Recent STEMI. TECHNIQUE: Single AP portable upright view of the chest is obtained. COMPARISON: Chest x-ray from [address] chest May 22, 2017 FINDINGS: Cardiomegaly is redemonstrated with slightly ectatic thoracic aorta causing mass effect on the trachea that has transverse diameter narrowing unchanged from prior. There is background chronic parenchymal change with patchy back basilar scarring and/or atelectasis. There is no new suspicious focal airspace opacity, pleural effusion, or pneumothorax seen bilaterally. Osseous structures are in tact. IMPRESSION: Overall stable findings, chronic changes and cardiomegaly with patchy bibasilar scarrin g and/or atelectasis. No suspicious focal infiltrate or effusions currently.
[2018-01-18] MEDS: METOPROLOL TARTRATE 25 MG TAB PO SCH ×2 (08:11→20:53)
[2018-01-18] MEDS: ASPIRIN 81 MG PO SCH (08:11)
[2018-01-18] MEDS: LISINOPRIL 2.5 MG TAB PO SCH (08:11)
[2018-01-18] MEDS: FAMOTIDINE 20 MG/2 ML VIAL IV SCH ×2 (08:11→20:53)
[2018-01-18] MEDS: SPIRONOLACTONE 25 MG TAB PO SCH (08:12)
[2018-01-18] MEDS: TICAGRELOR 90 MG TAB PO SCH ×2 (08:12→21:40)
[2018-01-18] MEDS: DOXYCYCLINE 100 MG in SODIUM CHLORIDE 0.9% 100 ML IVPB SCH ×2 (08:16→21:40)
[2018-01-18] MEDS: SODIUM CHLORIDE 0.9% 1,000 ML IV SCH (08:20)
--- NOTE | 2018-01-18 10:20 | PN ---
PROGRESS NOTE This gentleman presented with inferior ST-elevation SC. He is doing well post procedure. His ejection fraction is about 50% or so with inferolateral hypokinesia. Vitals signs are stable. He had some question of hypotension with lisinopril. I am recommending that we cut the lisinopril down to 2.5 mg daily. We will put him on 0.9 saline at 50 mL/hour and move him to telemetry unit. His right groin is clean and dry. Vitals are stable. No JVD or carotid bruit. S1, S2 heard normally. Lungs are clear. Abdominal and lower extremity exam otherwise is unchanged. Patient can be moved to telemetry. MMODL / IJN: [id number] /
[2018-01-18] MEDS: FINASTERIDE 5 MG TAB PO SCH (18:53)
[2018-01-18] MEDS: ATORVASTATIN 80 MG TAB PO SCH (20:53)
--- NOTE | 2018-01-18 21:06 | P.PN ---
Subjective this is a pleasant 67 yo M [facility] of prostate problem who presents yesterday to ED complaining from generalized weakness, "my legs were crumbling". he had to use the walker to get into his car and wheelchair to get into the hospital. in the ED pt was found to have STEMI with inferior VT pt has been evaluated by cardiolgy root and he already underwent cardiac cath by the time i saw him in the ICU, pt was chest pain free, no dypsnea , no change in urine or bowel habits and no fever . his elida were 30,000 high and now are trending down to 24, 600. he was leukocytosis . CXR showing possible basilar infiltrates 01/18/2018 pt lying in bed comfortable , feeling a little better regarding his weakness, no leg pain , no chest pain or dyspnea. pt is still has fever , leukocytosis is improving from 17.5 to 15K , pt does not have over resp s/s , not dyspeic, has some dry cough but sporadic, pt is on ceftriaxone and doxycycline, we will call ID consult . he is on iv fluids Objective - Vital Signs Vital signs: Vital Signs Temp 97.5 F L 01/18/18 15:39 Pulse 82 01/18/18 15:39 Resp 16 01/18/18 15:39 BP 121/73 01/18/18 15:39 Pulse Ox 97 01/18/18 15:39 Intake & Output 01/18/18 01/18/18 01/19/18 06:59 18:59 06:59 Intake Total 450 500 Output Total 500 600 Balance -50 -100 Weight 82 kg Intake: IV 450 500 Dextrose 5%-0.9% NaCl 1, 300 150 000 ml @ 75 mls/hr IV . [id number] [facility] Rx#:[id number] Doxycycline 100 mg In 100 100 Sodium Chloride 0.9% 100 ml @ 66.67 mls/hr IVPB Q12HR [facility] Rx#:[id number] Sodium Chloride 0.9% 1, 200 000 ml @ 50 mls/hr IV . Q20H [facility] Rx#:[id number] cefTRIAXone 1,000 mg In 50 50 Sodium Chloride 0.9% 50 ml @ 100 mls/hr IVPB Q24HR [facility] Rx#:[id number] Output: Urine 500 600 Other: Voiding Method Urinal Urinal # Voids 1 0 - Exam GENERAL: The patient is alert and oriented x3, not in any acute distress. Well developed, well nourished. HEENT: Pupils are round and equally reacting to light. EOMI. No scleral icterus. No conjunctival pallor. Normocephalic, atraumatic. No pharyngeal erythema. No thyromegaly. CARDIOVASCULAR: S1 and S2 present. No murmurs, rubs, or gallops. PULMONARY: Chest is clear to auscultation, no wheezing or crackles. ABDOMEN: Soft, nontender, nondistended, normoactive bowel sounds. No palpable organomegaly. MUSCULOSKELETAL: No joint swelling or deformity. EXTREMITIES: No cyanosis, clubbing, or pedal edema. NEUROLOGICAL: Gross neurological examination did not reveal any focal deficits. SKIN: No rashes. - Labs CBC & Chem 7: 01/18/18 03:12 01/18/18 03:12 Labs: Abnormal Lab Results - Last 24 Hours (Table) 01/18/18 01/18/18 01/18/18 Range/Units 03:12 03:12 04:20 WBC 15.0 H (3.8-10.6) k/uL RBC 4.05 L (4.30-5.90) m/uL Hgb 12.9 L (13.0-17.5) gm/dL Neutrophils # 12.0 H (1.3-7.7) k/uL Sodium 135 L (137-145) mmol/L Chloride 108 H (98-107) mmol/L Glucose 118 H (74-99) mg/dL Calcium 8.0 L (8.4-10.2) mg/dL Delta Bilirubin 0.3 H (0.0-0.2) mg/dL AST 77 H (17-59) U/L Total Protein 5.0 L (6.3-8.2) g/dL Albumin 2.7 L (3.5-5.0) g/dL HDL Cholesterol 31 L (40-60) mg/dL Urine Protein Trace H (Negative) Microbiology - Last 24 Hours (Table) 01/16/18 22:22 Blood Culture - Preliminary Blood No Growth after 24 hours Assessment and Plan Assessment: inferior VT with STEMI, status post cardiac cath and stenting of RCA community acquired pna, call ID consult leukcytosis , secondary to above mild hyponatremia elevated liver enz is improving Plan: pt p/w inferoir wall STEMI and pna. c/w antibotic , ceftriaxone and doxycycline. c/w same treatment .. c/w symptomatic treatment . monitor vital and labs. cardiology input is appreciated , pt is s/p cardiac cath and he will need to continue on continue with asa, brilinta, statin and beta-adam. continue with lisinopril and aldactone for better blood pressure control. ID consult , pt is on abx for sepsis, GI and DVT prophylaxis , ambien for insomina. further recommendation is based upon the clinical course of the pt DVT prophylaxis aspirin and brilinta GI prophylaxis pepcid
[2018-01-19] MEDS: SODIUM CHLORIDE 0.9% 1,000 ML IV SCH (02:39)
[2018-01-19 06:05] LABS: Basophils % (A) 0 %; Eosinophils # (A) 0.2 k/uL (0-0.7); Eosinophils % (A) 2 %; HGB 12.7 gm/dL (13.0-17.5); Lymphocytes # (A) 1.3 k/uL (1.0-4.8); Lymphocytes % (A) 10 %; MCH 30.4 pg (25.0-35.0); MCV 97.9 fL (80.0-100.0); Mean Platelet Volume 6.4; Monocytes # (A) 0.7 k/uL (0-1.0); Monocytes % (A) 5 %; Neutrophils # (A) 10.7 k/uL (1.3-7.7); Neutrophils % (A) 81 %; Platelet Count 314 k/uL (150-450); RBC 4.19 m/uL (4.30-5.90); RDW 13.2 % (11.5-15.5); WBC 13.2 k/uL (3.8-10.6)
[2018-01-19 06:19] LABS: ALT 36 U/L (21-72); AST 49 U/L (17-59); Alkaline Phosphatase 70 U/L (38-126); Anion Gap 6 mmol/L; Bilirubin, Delta 0.4 mg/dL (0.0-0.2); Bilirubin,Unconjugated 0.4 mg/dL (0.0-1.1); Blood Urea Nitrogen 11 mg/dL (9-20); Calcium 8.3 mg/dL (8.4-10.2); Carbon Dioxide 21 mmol/L (22-30); Chloride 109 mmol/L (98-107); Glucose 100 mg/dL (74-99); Potassium 4.2 mmol/L (3.5-5.1); Sodium 136 mmol/L (137-145); Total Bilirubin 0.8 mg/dL (0.2-1.3); Total Protein 5.5 g/dL (6.3-8.2)
[2018-01-19] MEDS: FAMOTIDINE 20 MG/2 ML VIAL IV SCH (09:08)
[2018-01-19] MEDS: ASPIRIN 81 MG PO SCH (09:08)
[2018-01-19] MEDS: LISINOPRIL 2.5 MG TAB PO SCH (09:09)
[2018-01-19] MEDS: METOPROLOL TARTRATE 25 MG TAB PO SCH ×2 (09:09→21:22)
[2018-01-19] MEDS: SPIRONOLACTONE 25 MG TAB PO SCH (09:09)
[2018-01-19] MEDS: FINASTERIDE 5 MG TAB PO SCH (09:09)
[2018-01-19] MEDS: TICAGRELOR 90 MG TAB PO SCH ×2 (09:10→21:22)
[2018-01-19] MEDS: DOXYCYCLINE 100 MG in SODIUM CHLORIDE 0.9% 100 ML IVPB SCH ×2 (09:13→21:29)
--- NOTE | 2018-01-19 12:11 | P.PN ---
Subjective Progress Note Date: 01/19/18 This is a 67-year-old gentleman who presented to the hospital with an ST elevation myocardial infarction underwent catheterization and was found to have a subtotally occluded right coronary artery patient underwent angioplasty and stenting. Echocardiogram with Doppler study was performed which revealed an ejection fraction of 50-55%. Blood pressure 110/70, heart rate in the 70s, 96% on room air, temperature 99.2. White blood cell count 13.2, hemoglobin 12.7 , platelet count 314. Sodium 136, potassium 4.2, BUN 11, creatinine 0.7. Patient was seen and examined this morning, he was mildly confused, taking off his monitor and things like that. His was at bedside. Objective - Vital Signs Vital signs: Vital Signs Temp 99.2 F 01/19/18 08:00 Pulse 79 01/19/18 08:00 Resp 16 01/19/18 11:49 BP 111/71 01/19/18 08:00 Pulse Ox 96 01/19/18 08:00 Intake & Output 01/18/18 01/19/18 01/19/18 18:59 06:59 18:59 Intake Total 500 600 240 Output Total 600 250 Balance -100 350 240 Weight 83.8 kg Intake: IV 500 600 Dextrose 5%-0.9% NaCl 1, 150 000 ml @ 75 mls/hr IV . [id number] [facility] Rx#:[id number] Doxycycline 100 mg In 100 100 Sodium Chloride 0.9% 100 ml @ 66.67 mls/hr IVPB Q12HR [facility] Rx#:[id number] Sodium Chloride 0.9% 1, 200 500 000 ml @ 50 mls/hr IV . Q20H [facility] Rx#:[id number] cefTRIAXone 1,000 mg In 50 Sodium Chloride 0.9% 50 ml @ 100 mls/hr IVPB Q24HR [facility] Rx#:[id number] Oral 240 Output: Urine 600 250 Other: Voiding Method Urinal Urinal Urinal # Voids 0 1 - Exam PHYSICAL EXAMINATION: GENERAL: 67-year-old gentleman in no acute distress at the time of my examination HEENT: Head is atraumatic, normocephalic. Pupils equal, round. Sclera anicteric. Conjunctiva are clear. Mucous membranes of the mouth are moist. Neck is supple. There is no elevated jugular venous pressure.] bruit is heard. HEART EXAMINATION: Heart S1, S2 normal. No murmur or gallop heard. CHEST EXAMINATION: Lungs are clear to auscultation and precussion. No chest wall tenderness is noted on palpation or with deep breathing. ABDOMEN: Soft, nontender. Bowel sounds are heard. No organomegaly noted. EXTREMITIES: 2+ peripheral pulses with no evidence of peripheral edema and no calf tenderness noted. NEUROLOGIC patient is awake, alert and oriented ?-3. . - Labs CBC & Chem 7: 01/19/18 05:39 01/19/18 05:39 Labs: Abnormal Lab Results - Last 24 Hours (Table) 01/19/18 01/19/18 Range/Units 05:39 05:39 WBC 13.2 H (3.8-10.6) k/uL RBC 4.19 L (4.30-5.90) m/uL Hgb 12.7 L (13.0-17.5) gm/dL Neutrophils # 10.7 H (1.3-7.7) k/uL Sodium 136 L (137-145) mmol/L Chloride 109 H (98-107) mmol/L Carbon Dioxide 21 L (22-30) mmol/L Glucose 100 H (74-99) mg/dL Calcium 8.3 L (8.4-10.2) mg/dL Delta Bilirubin 0.4 H (0.0-0.2) mg/dL Total Protein 5.5 L (6.3-8.2) g/dL Albumin 3.0 L (3.5-5.0) g/dL Microbiology - Last 24 Hours (Table) 01/18/18 03:12 Blood Culture - Preliminary Blood No Growth after 24 hours 01/18/18 02:40 Blood Culture - Preliminary Blood No Growth after 24 hours 01/16/18 22:22 Blood Culture - Preliminary Blood No Growth after 48 hours Assessment and Plan Plan: Assessment and Plan #1 Acute inferior/posterior OK, s/p stenting of RCA #2 Nicotine Dependance #3 hyperlipidemia #4 Nicotine dependance Plan Patient may be able to be discharged home today. We'll make a follow-up appointment in the office with Dr. Rodriguez post discharge.discharge medications include aspirin 81 mg daily, Lipitor 80 mg daily, lisinopril 10 mg daily, metoprolol 25 mg one tablet by mouth twice a day,Aldactone 25 mg daily, Brilinta 90 mg twice a day and sublingual nitroglycerin as needed for chest pain. DNP note has been reviewed, I agree with a documented findings and plan of care. Patient was seen and examined.
--- NOTE | 2018-01-19 17:51 | CONS ---
CONSULTATION DATE OF SERVICE: 01/19/2018. REASON FOR CONSULTATION: Fever and leukocytosis. HISTORY OF PRESENT ILLNESS: The patient is a 67-year-old male who presented to the [facility] ER on 01/16/2018 with chief complaints of generalized weakness and the patient concern that he may be having a stroke. His symptoms have been going on for a day or two prior to presenting to the hospital. The patient was weak, lethargic and unable to do any activities. The patient denies any high-grade fever at home, though, he was having some substernal chest pain more of a dull aching pain 2 to 3/10, and no radiation. The patient denies having any nausea, no vomiting and no URI symptoms. He did have very minimal cough, but not bringing up any sputum. Denies any abdominal pain. No nausea, vomiting and no diarrhea. With these symptoms, the patient has been evaluated by the ER physician. On arrival to the ER, the patient did have a chest x-ray which shows probably more mild heart failure. The patient did have a fever of 100.6-100.2 on presentation. The patient did have elevated troponin of 13.40. Subsequently has been evaluated by Cardiology. The patient did have a cardiac catheterization and did have a subtotally occluded distal large dominant right coronary artery and status post PTCA and stenting of the same. The patient did have elevated white count on admission of 20,000. This is down to 13.2. Chest x-ray may show some infiltrate but not very clear for pneumonia. He has been started on Rocephin and doxy. Infectious Disease was consulted for further recommendation of antibiotic therapy. REVIEW OF SYSTEMS: CONSTITUTIONAL: Positive for weakness along with the fever. EYES: No complaint. ENT: No complaint. RESPIRATORY: As per HPI. CARDIOVASCULAR: As per HPI. GENITOURINARY: No complaint. GASTROINTESTINAL: No complaint. MUSCULOSKELETAL: No complaint. PSYCHOLOGICAL: No complaint. ENDOCRINE: No complaint. NEUROLOGIC: No complaint. PAST MEDICAL HISTORY: Significant for prostate disorder. PAST SURGICAL HISTORY: No major surgeries. SOCIAL HISTORY: Positive for smoking about a pack a day. Denies drinking or drug use. FAMILY HISTORY: No pertinent findings noticed. ALLERGIES: No known drug allergies. MEDICATION: Medications include the patient is currently on Tylenol, Maalox, aspirin, Lipitor, atropine, Rocephin 1 g daily, doxycycline 100 b.i.d., Pepcid, Proscar, lisinopril, Lopressor, Nitrostat, Aldactone, Brilinta and Ambien. EXAMINATION: Blood pressure is 111/71 with a pulse of 79, temperature 98.2. He is 95% on room air. General description is an elderly male lying in bed in no distress. No tachypnea or accessory muscle respiration use. HEENT: Shows no pallor or scleral icterus. Oral mucosa is moist. No pharyngeal erythema or thrush. NECK: Trachea is central. No thyromegaly. LUNGS: Unlabored breathing with decreased breath sounds at the bases. No wheeze or crackle. HEART: S1, S2. Regular rate and rhythm. ABDOMEN: Soft, no tenderness. No guarding or rigidity. EXTREMITIES: No edema of the feet. LABS: Hemoglobin is 12.7, white count 13.2 with a BUN of 11, creatinine 0.72. Electrolytes has been normal. UA has been negative. Blood culture multiple has been negative. DIAGNOSTIC IMPRESSION AND PLAN: Patient admitted to the hospital with generalized weakness, no energy. He did have some substernal chest pain and mild cough has been diagnosed with acute myocardial infarction with status post PTCA and stenting of the right RCA with his fever and white count may be related to thromboembolic event. However underlying pneumonia of community acquired not entirely excluded. The patient currently has no other clinical focus of infection. His abdomen was soft on clinical examination. UA has been negative. No evidence of any cellulitis. PLAN: 1. We will continue patient on Rocephin 1 g daily along with doxycycline, which can be switched to p.o. 2. Send the urine for Legionella antigen. 3. We will follow on his clinical condition and culture to further adjust medication if needed. Thank you for this consultation. Will follow this patient along with you. MMODL / IJN: [id number] /
[2018-01-19] MEDS: ATORVASTATIN 80 MG TAB PO SCH (21:21)
[2018-01-19] MEDS: FAMOTIDINE 20 MG TAB PO SCH (21:22)
--- NOTE | 2018-01-19 21:36 | P.PN ---
Subjective this is a pleasant 67 yo M [facility] of prostate problem who presents yesterday to ED complaining from generalized weakness, "my legs were crumbling". he had to use the walker to get into his car and wheelchair to get into the hospital. in the ED pt was found to have STEMI with inferior [place] pt has been evaluated by cardiolgy root and he already underwent cardiac cath by the time i saw him in the ICU, pt was chest pain free, no dypsnea , no change in urine or bowel habits and no fever . his elida were 30,000 high and now are trending down to 24, 600. he was leukocytosis . CXR showing possible basilar infiltrates 01/18/2018 pt lying in bed comfortable , feeling a little better regarding his weakness, no leg pain , no chest pain or dyspnea. pt is still has fever , leukocytosis is improving from 17.5 to 15K , pt does not have over resp s/s , not dyspeic, has some dry cough but sporadic, pt is on ceftriaxone and doxycycline, we will call ID consult . he is on iv fluids 01/19/2018 pt lying in bed comfortable , feeling a little better regarding his weakness, no leg pain , no chest pain or dyspnea. pt is still has fever last temp was on and was 101.0, leukocytosis is improving from 17.5 to 15K to 13.2 , pt does not have overt resp s/s , not dyspeic, has some dry cough but sporadic, pt is on ceftriaxone and doxycycline, we will call ID consult . he is on iv fluids Objective - Vital Signs Vital signs: Vital Signs Temp 99.2 F 01/19/18 08:00 Pulse 77 01/19/18 16:00 Resp 16 01/19/18 16:00 BP 102/68 01/19/18 16:00 Pulse Ox 97 01/19/18 16:00 Intake & Output 01/19/18 01/19/18 01/20/18 06:59 18:59 06:59 Intake Total 600 960 Output Total 250 Balance 350 960 Weight 83.8 kg Intake: IV 600 Doxycycline 100 mg In 100 Sodium Chloride 0.9% 100 ml @ 66.67 mls/hr IVPB Q12HR [facility] Rx#:[id number] Sodium Chloride 0.9% 1, 500 000 ml @ 50 mls/hr IV . Q20H [facility] Rx#:[id number] Oral 960 Output: Urine 250 Other: Voiding Method Urinal Urinal # Voids 1 2 - Exam GENERAL: The patient is alert and oriented x3, not in any acute distress. Well developed, well nourished. HEENT: Pupils are round and equally reacting to light. EOMI. No scleral icterus. No conjunctival pallor. Normocephalic, atraumatic. No pharyngeal erythema. No thyromegaly. CARDIOVASCULAR: S1 and S2 present. No murmurs, rubs, or gallops. PULMONARY: Chest is clear to auscultation, no wheezing or crackles. ABDOMEN: Soft, nontender, nondistended, normoactive bowel sounds. No palpable organomegaly. MUSCULOSKELETAL: No joint swelling or deformity. EXTREMITIES: No cyanosis, clubbing, or pedal edema. NEUROLOGICAL: Gross neurological examination did not reveal any focal deficits. SKIN: No rashes. - Labs CBC & Chem 7: 01/19/18 05:39 01/19/18 05:39 Labs: Abnormal Lab Results - Last 24 Hours (Table) 01/19/18 01/19/18 Range/Units 05:39 05:39 WBC 13.2 H (3.8-10.6) k/uL RBC 4.19 L (4.30-5.90) m/uL Hgb 12.7 L (13.0-17.5) gm/dL Neutrophils # 10.7 H (1.3-7.7) k/uL Sodium 136 L (137-145) mmol/L Chloride 109 H (98-107) mmol/L Carbon Dioxide 21 L (22-30) mmol/L Glucose 100 H (74-99) mg/dL Calcium 8.3 L (8.4-10.2) mg/dL Delta Bilirubin 0.4 H (0.0-0.2) mg/dL Total Protein 5.5 L (6.3-8.2) g/dL Albumin 3.0 L (3.5-5.0) g/dL Microbiology - Last 24 Hours (Table) 01/18/18 03:12 Blood Culture - Preliminary Blood No Growth after 24 hours 01/18/18 02:40 Blood Culture - Preliminary Blood No Growth after 24 hours 01/16/18 22:22 Blood Culture - Preliminary Blood No Growth after 48 hours Assessment and Plan Assessment: inferior WI with STEMI, status post cardiac cath and stenting of RCA community acquired pna, call ID consult leukcytosis , secondary to above mild hyponatremia elevated liver enz is improving Plan: pt p/w inferoir wall STEMI and pna. c/w antibotic , ceftriaxone and doxycycline. c/w same treatment .. c/w symptomatic treatment . monitor vital and labs. cardiology input is appreciated , pt is s/p cardiac cath and he will need to continue on continue with asa, brilinta, statin and beta-adam. continue with lisinopril and aldactone for better blood pressure control. ID consult , pt is on abx for sepsis, GI and DVT prophylaxis , ambien for insomina. further recommendation is based upon the clinical course of the pt DVT prophylaxis aspirin and brilinta GI prophylaxis pepcid
[2018-01-20] MEDS: SODIUM CHLORIDE 0.9% 1,000 ML IV SCH ×2 (00:28→08:01)
[2018-01-20 06:56] LABS: Basophils # (A) 0.1 k/uL (0-0.2); Basophils % (A) 0 %; Eosinophils # (A) 0.4 k/uL (0-0.7); Eosinophils % (A) 3 %; HCT 42.3 % (39.0-53.0); HGB 13.4 gm/dL (13.0-17.5); Lymphocytes # (A) 1.6 k/uL (1.0-4.8); Lymphocytes % (A) 15 %; MCHC 31.7 g/dL (31.0-37.0); MCV 97.8 fL (80.0-100.0); Mean Platelet Volume 6.6; Monocytes # (A) 0.6 k/uL (0-1.0); Monocytes % (A) 6 %; Neutrophils # (A) 7.9 k/uL (1.3-7.7); Neutrophils % (A) 72 %; Platelet Count 374 k/uL (150-450); RBC 4.33 m/uL (4.30-5.90); RDW 13.2 % (11.5-15.5); WBC 10.9 k/uL (3.8-10.6)
[2018-01-20] MEDS: SPIRONOLACTONE 25 MG TAB PO SCH (08:13)
[2018-01-20] MEDS: TICAGRELOR 90 MG TAB PO SCH ×2 (08:13→20:49)
[2018-01-20] MEDS: METOPROLOL TARTRATE 25 MG TAB PO SCH ×2 (08:13→20:49)
[2018-01-20] MEDS: FINASTERIDE 5 MG TAB PO SCH (08:14)
[2018-01-20] MEDS: LISINOPRIL 2.5 MG TAB PO SCH (08:14)
[2018-01-20] MEDS: ASPIRIN 81 MG PO SCH (08:14)
[2018-01-20] MEDS: FAMOTIDINE 20 MG TAB PO SCH ×2 (08:14→20:49)
[2018-01-20] MEDS: DOXYCYCLINE 100 MG in SODIUM CHLORIDE 0.9% 100 ML IVPB SCH ×2 (10:31→20:48)
--- NOTE | 2018-01-20 16:22 | PN ---
PROGRESS NOTE DATE OF SERVICE: 01/20/2018. REASON FOR FOLLOWUP: Fever and possible pneumonia. INTERVAL HISTORY: The patient did have a low-grade fever of 100.1 last night around 11:00 pm; however, the patient has been afebrile since then. The patient overall is feeling better and anxious to go home. Denies having any URI symptoms. No chest pain. No shortness of breath. Very minimal cough. No abdominal pain and no diarrhea. EXAMINATION: Blood pressure 125/77 with a pulse of 80, temperature 98.2. He is 97% on room air. General description is an elderly male lying in bed in no distress. RESPIRATORY SYSTEM: Unlabored breathing with decreased breath sounds at the bases. No wheeze. HEART: S1, S2. Regular rate and rhythm. ABDOMEN: Soft, no tenderness. LABS: White count down to 10.9. Blood culture has been negative. DIAGNOSTIC IMPRESSION AND PLAN: Patient admitted to the hospital with shortness of breath or some substernal chest pain diagnosed with acute myocardial infarction, status post PTCA and stenting of the RCA and patient was having a fever with elevated white count, concern for possible community-acquired bronchial pneumonia. The patient fever responded to the Rocephin and doxy. Will plan to finish therapy with oral Ceftin 500 mg twice a day for another week to finish a course of therapy. Continue supportive care. MMODL / IJN: [id number] /
[2018-01-20] MEDS: ATORVASTATIN 80 MG TAB PO SCH (20:48)
--- NOTE | 2018-01-20 21:10 | P.PN ---
Subjective this is a pleasant 67 yo M [facility] of prostate problem who presents yesterday to ED complaining from generalized weakness, "my legs were crumbling". he had to use the walker to get into his car and wheelchair to get into the hospital. in the ED pt was found to have STEMI with inferior [place] pt has been evaluated by cardiolgy root and he already underwent cardiac cath by the time i saw him in the ICU, pt was chest pain free, no dypsnea , no change in urine or bowel habits and no fever . his elida were 30,000 high and now are trending down to 24, 600. he was leukocytosis . CXR showing possible basilar infiltrates 01/18/2018 pt lying in bed comfortable , feeling a little better regarding his weakness, no leg pain , no chest pain or dyspnea. pt is still has fever , leukocytosis is improving from 17.5 to 15K , pt does not have over resp s/s , not dyspeic, has some dry cough but sporadic, pt is on ceftriaxone and doxycycline, we will call ID consult . he is on iv fluids 01/19/2018 pt lying in bed comfortable , feeling a little better regarding his weakness, no leg pain , no chest pain or dyspnea. pt is still has fever last temp was on and was 101.0, leukocytosis is improving from 17.5 to 15K to 13.2 , pt does not have overt resp s/s , not dyspeic, has some dry cough but sporadic, pt is on ceftriaxone and doxycycline, we will call ID consult . he is on iv fluids 01/20/2018 Patient still spiking fever at 100.1 today, patient was insistent to be discharged since yesterday, I discussed the situation with the patient and it looks like he was bothered by his neighbor inmate in the room. However after extensive discussion with the patient and at bedside including the risks benefits and alternative of discharge versus sustained in the hospital, patient and both agreed to stay in the hospital, while the medical staff with the try to switch rooms for him, discussed with the staff. ID input is appreciated , continue with antibiotics for now Objective - Vital Signs Vital signs: Vital Signs Temp 98.0 F 01/20/18 12:00 Pulse 82 01/20/18 12:00 Resp 14 01/20/18 12:00 BP 91/54 01/20/18 12:00 Pulse Ox 94 L 01/20/18 12:00 Intake & Output 01/19/18 01/20/18 01/20/18 18:59 06:59 18:59 Intake Total 960 1170 Output Total 600 300 Balance 960 -600 870 Weight 82.4 kg Intake: IV 450 Doxycycline 100 mg In 100 Sodium Chloride 0.9% 100 ml @ 66.67 mls/hr IVPB Q12HR [facility] Rx#:[id number] Sodium Chloride 0.9% 1, 250 000 ml @ 50 mls/hr IV . Q20H [facility] Rx#:[id number] cefTRIAXone 1,000 mg In 100 Sodium Chloride 0.9% 50 ml @ 100 mls/hr IVPB Q24HR [facility] Rx#:[id number] Oral 960 720 Output: Urine 600 300 Other: Voiding Method Urinal Urinal Urinal # Voids 2 - Exam GENERAL: The patient is alert and oriented x3, not in any acute distress. Well developed, well nourished. HEENT: Pupils are round and equally reacting to light. EOMI. No scleral icterus. No conjunctival pallor. Normocephalic, atraumatic. No pharyngeal erythema. No thyromegaly. CARDIOVASCULAR: S1 and S2 present. No murmurs, rubs, or gallops. PULMONARY: Chest is clear to auscultation, no wheezing or crackles. ABDOMEN: Soft, nontender, nondistended, normoactive bowel sounds. No palpable organomegaly. MUSCULOSKELETAL: No joint swelling or deformity. EXTREMITIES: No cyanosis, clubbing, or pedal edema. NEUROLOGICAL: Gross neurological examination did not reveal any focal deficits. SKIN: No rashes. - Labs CBC & Chem 7: 01/20/18 06:10 01/19/18 05:39 Labs: Abnormal Lab Results - Last 24 Hours (Table) 01/20/18 Range/Units 06:10 WBC 10.9 H (3.8-10.6) k/uL Neutrophils # 7.9 H (1.3-7.7) k/uL Microbiology - Last 24 Hours (Table) 01/18/18 03:12 Blood Culture - Preliminary Blood No Growth after 48 hours 01/18/18 02:40 Blood Culture - Preliminary Blood No Growth after 48 hours 01/16/18 22:22 Blood Culture - Preliminary Blood No Growth after 72 hours Assessment and Plan Assessment: inferior ME with STEMI, status post cardiac cath and stenting of RCA community acquired pna, ID consult is appreciated leukcytosis , secondary to above mild hyponatremia elevated liver enz is improving Plan: pt p/w inferoir wall STEMI and pna. c/w antibotic , ceftriaxone and doxycycline. c/w same treatment .. c/w symptomatic treatment . monitor vital and labs. cardiology input is appreciated , pt is s/p cardiac cath and he will need to continue on continue with asa, brilinta, statin and beta-adam. continue with lisinopril and aldactone for better blood pressure control. ID consult , pt is on abx for sepsis, GI and DVT prophylaxis , ambien for insomina. further recommendation is based upon the clinical course of the pt DVT prophylaxis aspirin and brilinta GI prophylaxis pepcid
[2018-01-21] MEDS: DOXYCYCLINE 100 MG in SODIUM CHLORIDE 0.9% 100 ML IVPB SCH ×2 (08:32→21:00)
[2018-01-21] MEDS: SODIUM CHLORIDE 0.9% 1,000 ML IV SCH (08:33)
[2018-01-21] MEDS: TICAGRELOR 90 MG TAB PO SCH ×2 (08:34→21:00)
[2018-01-21] MEDS: LISINOPRIL 2.5 MG TAB PO SCH (08:34)
[2018-01-21] MEDS: FAMOTIDINE 20 MG TAB PO SCH ×2 (08:34→21:00)
[2018-01-21] MEDS: ASPIRIN 81 MG PO SCH (08:34)
[2018-01-21] MEDS: FINASTERIDE 5 MG TAB PO SCH (11:07)
[2018-01-21] MEDS: METOPROLOL TARTRATE 25 MG TAB PO SCH ×2 (11:07→21:00)
[2018-01-21] MEDS: SPIRONOLACTONE 25 MG TAB PO SCH (11:07)
[2018-01-21 13:21] LABS: Basophils # (A) 0.1 k/uL (0-0.2); Basophils % (A) 1 %; Eosinophils # (A) 0.3 k/uL (0-0.7); Eosinophils % (A) 3 %; HGB 13.2 gm/dL (13.0-17.5); Lymphocytes # (A) 1.4 k/uL (1.0-4.8); Lymphocytes % (A) 15 %; MCH 31.5 pg (25.0-35.0); MCHC 32.9 g/dL (31.0-37.0); MCV 95.8 fL (80.0-100.0); Mean Platelet Volume 6.4; Monocytes # (A) 0.7 k/uL (0-1.0); Monocytes % (A) 8 %; Neutrophils % (A) 71 %; Platelet Count 403 k/uL (150-450); RBC 4.18 m/uL (4.30-5.90); WBC 9.9 k/uL (3.8-10.6)
[2018-01-21] MEDS ORDERED: LEVOFLOXACIN 750MG-D5W PMX 750 MG in DEXTROSE/WATER 1 150ML.BAG IVPB STA (15:01)
--- NOTE | 2018-01-21 15:02 | P.PN ---
Subjective this is a pleasant 67 yo M [facility] of prostate problem who presents yesterday to ED complaining from generalized weakness, "my legs were crumbling". he had to use the walker to get into his car and wheelchair to get into the hospital. in the ED pt was found to have STEMI with inferior MD pt has been evaluated by cardiolgy root and he already underwent cardiac cath by the time i saw him in the ICU, pt was chest pain free, no dypsnea , no change in urine or bowel habits and no fever . his elida were 30,000 high and now are trending down to 24, 600. he was leukocytosis . CXR showing possible basilar infiltrates 01/18/2018 pt lying in bed comfortable , feeling a little better regarding his weakness, no leg pain , no chest pain or dyspnea. pt is still has fever , leukocytosis is improving from 17.5 to 15K , pt does not have over resp s/s , not dyspeic, has some dry cough but sporadic, pt is on ceftriaxone and doxycycline, we will call ID consult . he is on iv fluids 01/19/2018 pt lying in bed comfortable , feeling a little better regarding his weakness, no leg pain , no chest pain or dyspnea. pt is still has fever last temp was on and was 101.0, leukocytosis is improving from 17.5 to 15K to 13.2 , pt does not have overt resp s/s , not dyspeic, has some dry cough but sporadic, pt is on ceftriaxone and doxycycline, we will call ID consult . he is on iv fluids 01/20/2018 Patient still spiking fever at 100.1 today, patient was insistent to be discharged since yesterday, I discussed the situation with the patient and it looks like he was bothered by his neighbor inmate in the room. However after extensive discussion with the patient and at bedside including the risks benefits and alternative of discharge versus sustained in the hospital, patient and both agreed to stay in the hospital, while the medical staff with the try to switch rooms for him, discussed with the staff. ID input is appreciated , continue with antibiotics for now 01/21/2018 Patient again had another fever at 100.1 however he is still without symptoms. No chest pain dyspnea or coughing. No diarrhea or rash. No change in urine habits or burning. I spoke with the patient and at bedside,at the beginning they still wanted to leave today however after discussing the situation with them they agreed to stay until tomorrow morning and we will do CT of the thorax without IV contrast and give 1 dose of Levaquin. Infectious disease input is appreciated in the R following the case. Objective - Vital Signs Vital signs: Vital Signs Temp 97.3 F L 01/21/18 11:39 Pulse 83 01/21/18 11:39 Resp 16 01/21/18 11:39 BP 118/74 01/21/18 11:39 Pulse Ox 97 01/21/18 11:39 Intake & Output 01/20/18 01/21/18 01/21/18 18:59 06:59 18:59 Intake Total 1410 250 Output Total 300 600 Balance 1110 -350 Weight 80.9 kg Intake: IV 450 250 Doxycycline 100 mg In 100 100 Sodium Chloride 0.9% 100 ml @ 66.67 mls/hr IVPB Q12HR [facility] Rx#:[id number] Sodium Chloride 0.9% 1, 250 50 000 ml @ 50 mls/hr IV . Q20H [facility] Rx#:[id number] cefTRIAXone 1,000 mg In 100 100 Sodium Chloride 0.9% 50 ml @ 100 mls/hr IVPB Q24HR [facility] Rx#:[id number] Oral 960 Output: Urine 300 600 Other: Voiding Method Urinal Urinal Urinal - Exam GENERAL: The patient is alert and oriented x3, not in any acute distress. Well developed, well nourished. HEENT: Pupils are round and equally reacting to light. EOMI. No scleral icterus. No conjunctival pallor. Normocephalic, atraumatic. No pharyngeal erythema. No thyromegaly. CARDIOVASCULAR: S1 and S2 present. No murmurs, rubs, or gallops. PULMONARY: Chest is clear to auscultation, no wheezing or crackles. ABDOMEN: Soft, nontender, nondistended, normoactive bowel sounds. No palpable organomegaly. MUSCULOSKELETAL: No joint swelling or deformity. EXTREMITIES: No cyanosis, clubbing, or pedal edema. NEUROLOGICAL: Gross neurological examination did not reveal any focal deficits. SKIN: No rashes. - Labs CBC & Chem 7: 01/21/18 13:06 01/19/18 05:39 Labs: Abnormal Lab Results - Last 24 Hours (Table) 01/21/18 Range/Units 13:06 RBC 4.18 L (4.30-5.90) m/uL Microbiology - Last 24 Hours (Table) 01/18/18 03:12 Blood Culture - Preliminary Blood No Growth after 72 hours 01/18/18 02:40 Blood Culture - Preliminary Blood No Growth after 72 hours 01/16/18 22:22 Blood Culture - Preliminary Blood No Growth after 96 hours Assessment and Plan Assessment: inferior MD with STEMI, status post cardiac cath and stenting of RCA community acquired pna, ID consult is appreciated leukcytosis , secondary to above mild hyponatremia elevated liver enz is improving Plan: pt p/w inferoir wall STEMI and pna. c/w antibotic , ceftriaxone and doxycycline. c/w same treatment .. c/w symptomatic treatment . monitor vital and labs. cardiology input is appreciated , pt is s/p cardiac cath and he will need to continue on continue with asa, brilinta, statin and beta-adam. continue with lisinopril and aldactone for better blood pressure control. ID consult , pt is on abx for sepsis, GI and DVT prophylaxis , ambien for insomina. further recommendation is based upon the clinical course of the pt DVT prophylaxis aspirin and brilinta GI prophylaxis pepcid
--- NOTE | 2018-01-21 15:23 | PN ---
PROGRESS NOTE DATE OF SERVICE: 01/21/2018. REASON FOR FOLLOWUP: Fever, likely pneumonia. INTERVAL HISTORY: The patient is currently afebrile. He is feeling better. Breathing comfortably. Temperature last night was 100.1 at around 11, but no fever recorded since then. No nausea, no vomiting. No abdominal pain and no diarrhea. EXAMINATION: Blood pressure 118/74 with a pulse of 83. Temperature 97.3. He is 97% on room air. General description is an elderly male up in the bed in no distress. RESPIRATORY SYSTEM: Unlabored breathing. Decreased breath sounds in the bases. No wheeze. HEART: S1, S2. Regular rate and rhythm. ABDOMEN: Soft, no tenderness. LABS: Hemoglobin 13.2, white count 9.9. Blood culture has been negative. DIAGNOSTIC IMPRESSION AND PLAN: Patient with a fever and leukocytosis, more likely component of pneumonia possible community-acquired. The patient seemed to respond to the Rocephin and doxy. Will plan to finish therapy with oral Ceftin. Prescription was sent to the pharmacy. Questions were answered. JUANL / IJN: [id number] /
--- NOTE | 2018-01-21 15:40 | CT ---
EXAMINATION TYPE: CT chest wo con DATE OF EXAM: 01/21/2018 COMPARISON: 05/22/2017 HISTORY: Fever of unknown origin CT DLP: 355.4 mGycm. Automated Exposure Control for Dose Reduction was Utilized. TECHNIQUE: CT scan of the thorax is performed without IV contrast. FINDINGS: There is some fluid in the major fissures and more on the right side. There is some patchy infiltrate and atelectasis at the right posterior lung base. There are small posterior pleural effusions. There is small pericardial effusion. Heart is enlarged. There is no mediastinal adenopathy. There is coron enma artery calcification. The bony thorax shows degenerative hypertrophic spur formation. IMPRESSION: Loculated bilateral pleural effusions. This appears worse than old CT scan. There is some chronic infiltrate and atelectasis at the right posterior lung base unchanged. Cardiomegaly with new pericardial effusion compared to old exam.
[2018-01-21] MEDS: ATORVASTATIN 80 MG TAB PO SCH (21:00)
[2018-01-22] MEDS: ASPIRIN 81 MG PO SCH (08:20)
[2018-01-22] MEDS: FAMOTIDINE 20 MG TAB PO SCH (08:21)
[2018-01-22] MEDS: METOPROLOL TARTRATE 25 MG TAB PO SCH (08:22)
[2018-01-22] MEDS: SPIRONOLACTONE 25 MG TAB PO SCH (08:22)
[2018-01-22] MEDS: LISINOPRIL 2.5 MG TAB PO SCH (08:22)
[2018-01-22] MEDS: TICAGRELOR 90 MG TAB PO SCH (08:22)
[2018-01-22 08:32] VITALS: RESP 16
[2018-01-22] MEDS: FINASTERIDE 5 MG TAB PO SCH (12:25)
[2018-01-22] MEDS: DOXYCYCLINE 100 MG in SODIUM CHLORIDE 0.9% 100 ML IVPB SCH (12:25)
--- NOTE | 2018-01-22 13:59 | ECHOF ---
Referral Reason:assess pericardiaol eff, limited study MEASUREMENTS -------- HEIGHT: 172.7 cm WEIGHT: 79.8 kg BP: FINDINGS -------- Sinus rhythm. Limited Study for pericardial effusion There is a trivial pericardial effusion present. CONCLUSIONS -------- 1. Sinus rhythm. 2. Limited Study for pericardial effusion 3. There is a trivial pericardial effusion present. [employer] WORKER: Jamaica Kee RDCS
[2018-01-22 14:08] VITALS: BP 100/64; PULSE 75; TEMP 97.5
--- NOTE | 2018-01-22 14:38 | PN ---
PROGRESS NOTE DATE OF SERVICE: 01/22/2018. REASON FOR FOLLOWUP: Fever, source likely pneumonia. INTERVAL HISTORY: The patient is currently afebrile. He is feeling better. Breathing comfortably. Denies significant chest pain. Occasional cough. No abdominal pain. No diarrhea. EXAMINATION: Blood pressure 105/60 with a pulse of 78, temperature 98. She is 96% on room air. General description is an elderly male lying in bed in no distress. RESPIRATORY SYSTEM: Unlabored breathing. Clear to auscultation anteriorly. HEART: S1, S2. Regular rate and rhythm. ABDOMEN: Soft, no tenderness. LABS: No new labs have been obtained today. Blood culture has been negative. White count was normal as of yesterday. DIAGNOSTIC IMPRESSION AND PLAN: Patient with fever, leukocytosis, source likely pneumonia, more likely community- acquired as the patient has shown overall clinical improvement on Rocephin and doxy. He will finish therapy with oral Ceftin 500 mg b.i.d. for 1 week. Prescription has been sent to the pharmacy. Continue supportive care. MMODL / REGISN: [id number] /
--- NOTE | 2018-01-22 15:17 | P.DS ---
Providers Date of admission: 01/16/18 23:05 Attending physician: Myla Bonner Consults: 01/16/18 22:27 Consult Physician Stat Consulting Provider: Cardiology Chris Consult Reason/Comments: STEMI ACTIVATION COMPLETE Do you want consulting provider notified?: Yes 01/17/18 00:12 Consult Physician Routine Consulting Provider: Shanel Perez Consult Reason/Comments: Post Interventional patient Do you want consulting provider notified?: Already Contacted 01/18/18 21:01 Consult Physician Routine Consulting Provider: Lala Nunes Consult Reason/Comments: fever , high wbc, possible pna Do you want consulting provider notified?: Yes 01/22/18 11:05 Consult Physician Stat Consulting Provider: Jeremiah Raya Consult Reason/Comments: loculated bilat pl effusion Do you want consulting provider notified?: Yes 01/22/18 11:16 Consult Physician Urgent Consulting Provider: Jeremiah Raya Consult Reason/Comments: loculated pleural effusion in view of infection Do you want consulting provider notified?: Yes Primary care physician: 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 Patient underwent angioplasty and stenting of the right coronary artery. And also found to have fever and admission as high as 102.2 with leukocytosis of 20.2 K on admission.CXR showing possible basilar infiltrates , patient has been evaluated by infectious disease. And his been treated with antibiotics namely ceftriaxone, patient Spiking fever and repeat chest x-ray showed possible loculated pleural effusion and pericardial effusion. Repeated echo shows trace pericardial fluid. Patient has been evaluated by quality analyst/technical writer for his lung disease and here commented to be discharged and follow-up in the office as an outpatient. Patient remained afebrile more than 24 hours on the day of discharge. And his leukocytosis came back to normal at 9.9K. Patient will be discharged on oral antibiotics as per ID recommendation. Patient has been cleared by all consultants including pulmonary, cardiology and infectious disease teams for discharge. Problem list and management plan was discussed with the patient and at bedside and they verbalized understanding and agreement area patient is found stable and can be discharged home however he needs follow-up as an outpatient. Patient and agreed to the appointments GENERAL: The patient is alert and oriented x3, not in any acute distress. Well developed, well nourished. HEENT: Pupils are round and equally reacting to light. EOMI. No scleral icterus. No conjunctival pallor. Normocephalic, atraumatic. No pharyngeal erythema. No thyromegaly. CARDIOVASCULAR: S1 and S2 present. No murmurs, rubs, or gallops. PULMONARY: Chest is clear to auscultation, no wheezing or crackles. ABDOMEN: Soft, nontender, nondistended, normoactive bowel sounds. No palpable organomegaly. MUSCULOSKELETAL: No joint swelling or deformity. EXTREMITIES: No cyanosis, clubbing, or pedal edema. NEUROLOGICAL: Gross neurological examination did not reveal any focal deficits. SKIN: No rashes. Time spent more than 35 minutes Patient Condition at Discharge: Good Plan - Discharge Summary Discharge Rx Participant: Yes New Discharge Prescriptions: New Aspirin 81 mg PO DAILY #303 chew Atorvastatin [Lipitor] 80 mg PO HS #30 tab Lisinopril [Zestril] 2.5 mg PO DAILY #30 tab Metoprolol Tartrate [Lopressor] 25 mg PO BID #60 tab Nitroglycerin Sl Tabs [Nitrostat] 0.4 mg SUBLINGUAL Q5M PRN #25 tab PRN Reason: Chest Pain Spironolactone [Aldactone] 25 mg PO DAILY #30 tab Ticagrelor [Brilinta] 90 mg PO BID #60 tab Cefuroxime Axetil [Ceftin] 500 mg PO BID 3 Days #14 tab Famotidine [Pepcid] 20 mg PO BID #60 tab Continue Ascorbic Acid [Vitamin C] 500 mg PO DAILY Albuterol Sulfate [Proair Hfa] 2 puff INHALATION RT-Q6H PRN PRN Reason: Shortness Of Breath Finasteride [Proscar] 5 mg PO DAILY Oxybutynin Chloride 5 mg PO BID Discharge Medication List Albuterol Sulfate [Proair Hfa] 2 puff INHALATION RT-Q6H PRN 01/16/18 [History] Ascorbic Acid [Vitamin C] 500 mg PO DAILY 01/16/18 [History] Finasteride [Proscar] 5 mg PO DAILY 01/17/18 [History] Oxybutynin Chloride 5 mg PO BID 01/17/18 [History] Aspirin 81 mg PO DAILY #303 chew 01/19/18 [Rx] Atorvastatin [Lipitor] 80 mg PO HS #30 tab 01/19/18 [Rx] Lisinopril [Zestril] 2.5 mg PO DAILY #30 tab 01/19/18 [Rx] Metoprolol Tartrate [Lopressor] 25 mg PO BID #60 tab 01/19/18 [Rx] Nitroglycerin Sl Tabs [Nitrostat] 0.4 mg SUBLINGUAL Q5M PRN #25 tab 01/19/18 [Rx ] Spironolactone [Aldactone] 25 mg PO DAILY #30 tab 01/19/18 [Rx] Ticagrelor [Brilinta] 90 mg PO BID #60 tab 01/19/18 [Rx] Cefuroxime Axetil [Ceftin] 500 mg PO BID 3 Days #14 tab 01/20/18 [Rx] Famotidine [Pepcid] 20 mg PO BID #60 tab 01/22/18 [Rx] Follow up Appointment(s)/Referral(s): Jeremiah Raya MD [STAFF PHYSICIAN] - 02/01/18 10:30 am Erin Rodriguez MD [STAFF PHYSICIAN] - 1 Week (Office will call with follow up appointment within 1-2 business days. Please call with any concerns.) Erika Urias MD [Primary Care Provider] - 01/23/18 1:45 pm (Monday -previously scheduled appointment) Lala Nunes MD [STAFF PHYSICIAN] - 1 Week (Infectious disease physician managing pneumonia.) Patient Instructions/Handouts: Left Heart Catheterization (DC), Heart Healthy Diet (DC), Pleural Effusion (DC), Pneumonia (DC), Safe Use of Antiplatelet Medication (DC) Activity/Diet/Wound Care/Special Instructions: Please roller picker free Brilinta prescription from [facility] on discharge. The copay is $150 afterwards. Please go to cardiology office for subsequent free refills. Discharge Disposition: HOME SELF-CARE
--- NOTE | 2018-01-22 16:08 | P.CNPUL ---
History of Present Illness Consult date: 01/22/18 Requesting physician: Stephane Phipps Reason for consult: pneumonia, pleural effusion, abnormal CXR/CT, other Chief complaint: loculated pleural effusion, community acquired pneumonia, NONSTEMI History of present illness: This is a 67-year-old white male patient who was admitted on 01/16/2018 for a diagnosis of community-acquired pneumonia, patient presented to the emergency department with complaints of generalized weakness, substernal chest pain. Patient denied any associated dyspnea, palpitation or syncope. No peripheral edema. Initial EKG had evidence of inferior lead ST elevation, and some septal ST depression. Patient ruled in for study elevated myocardial infarction. He underwent cardiac catheterization which showed subtotally occluded distal RCA, and mild disease in the LAD. Patient underwent successful angioplasty and stenting of the right coronary artery. On presentation patient had leukocytosis with a white count of 20.2, initial chest x-ray showed grunting of the costophrenic angles, and mild pulmonary vascular congestion with infiltration at the lung bases. A chest x-ray on 01/18/2018 showed patchy basilar scarring and/or atelectasis but no suspicious focal infiltrate or effusions. Patient had some fever spikes, as high as 101 agree Fahrenheit on , but no significant pulmonary complaints other than the dry cough. Underlying pneumonia could not entirely be ruled out, patient was treated with empiric antibiotics per ID service recommendation including Rocephin, and doxycycline. Legionella urine antigen was not detected. Despite the antibiotics, patient had persistent fevers, and CT chest without contrast was obtained on 01/21/2018 which showed loculated bilateral pleural effusions, some chronic infiltrate and atelectasis at the right posterior lung base. We were consulted in regard to a nonspecific loculated pleural effusions. Clinically patient is comfortable, without acute complaints. Denies any dyspnea, denies any chest pain, afebrile, room air pulse ox is 94%. His last episode of fever was on oral 01/20/2018 with a temp of 100.1F. Patient is a current smoker, plans on quitting. No hemoptysis, only occasional cough, no wheezing. No acute distress. Review of Systems All systems: negative Constitutional: Denies chills, Denies fever Eyes: denies blurred vision, denies pain Ears, nose, mouth and throat: Denies headache, Denies sore throat Cardiovascular: Denies chest pain, Denies shortness of breath Respiratory: Denies cough Gastrointestinal: Denies abdominal pain, Denies diarrhea, Denies nausea, Denies vomiting Musculoskeletal: Denies myalgias Integumentary: Denies pruritus, Denies rash Neurological: Denies numbness, Denies weakness Psychiatric: Denies anxiety, Denies depression Endocrine: Denies fatigue, Denies weight change Past Medical History Past Medical History: Prostate Disorder History of Any Multi-Drug Resistant Organisms: None Reported Past Surgical History: No Surgical Hx Reported Past Psychological History: No Psychological Hx Reported Smoking Status: Current every day smoker Past Alcohol Use History: None Reported Past Drug Use History: None Reported Medications and Allergies Home Medications Medication Instructions Recorded Confirmed Type Albuterol Sulfate [Proair Hfa] 2 puff INHALATION RT-Q6H PRN 01/16/18 01/16/18 History Ascorbic Acid [Vitamin C] 500 mg PO DAILY 01/16/18 01/16/18 History Finasteride [Proscar] 5 mg PO DAILY 01/17/18 01/17/18 History Oxybutynin Chloride 5 mg PO BID 01/17/18 01/17/18 History Aspirin 81 mg PO DAILY #303 chew 01/19/18 Rx Atorvastatin [Lipitor] 80 mg PO HS #30 tab 01/19/18 Rx Lisinopril [Zestril] 2.5 mg PO DAILY #30 tab 01/19/18 Rx Metoprolol Tartrate [Lopressor] 25 mg PO BID #60 tab 01/19/18 Rx Nitroglycerin Sl Tabs [Nitrostat] 0.4 mg SUBLINGUAL Q5M PRN #25 tab 01/19/18 Rx Spironolactone [Aldactone] 25 mg PO DAILY #30 tab 01/19/18 Rx Ticagrelor [Brilinta] 90 mg PO BID #60 tab 01/19/18 Rx Cefuroxime Axetil [Ceftin] 500 mg PO BID 3 Days #14 tab 01/20/18 Rx Famotidine [Pepcid] 20 mg PO BID #60 tab 01/22/18 Rx Allergies Allergy/AdvReac Type Severity Reaction Status Date / Time No Known Allergies Allergy Verified 01/16/18 22:38 Physical Exam Vitals: Vital Signs Temp Pulse Pulse Resp BP Pulse Ox 09/17/18 12:00 97.5 F L 75 16 100/64 94 L 01/22/18 11:22 16 01/22/18 08:00 98 F 78 16 105/68 96 01/22/18 04:05 98.5 F 75 18 133/76 96 01/21/18 23:33 99.2 F 81 17 135/75 95 01/21/18 20:15 98.7 F 74 18 109/68 96 01/21/18 15:38 99.1 F 83 78 14 106/71 97 Intake and Output 01/22/18 01/22/18 01/22/18 06:59 14:59 22:59 Intake Total 790 240 Output Total 600 500 Balance 190 -260 Intake: IV 550 Doxycycline 100 mg In 100 Sodium Chloride 0.9% 100 ml @ 66.67 mls/hr IVPB Q12HR [facility] Rx#:[id number] Sodium Chloride 0.9% 1, 450 000 ml @ 50 mls/hr IV . Q20H [facility] Rx#:[id number] Oral 240 240 Output: Urine 600 500 Other: Voiding Method Urinal Urinal Diaper Diaper Incontinent Incontinent # Voids 2 2 Weight 79.9 kg GENERAL EXAM: Alert, pleasant, 67-year-old white male comfortable in no apparent distress. HEAD: Normocephalic/atraumatic. EYES: Normal reaction of pupils, equal size. Conjunctiva pink, sclera white. NOSE: Clear with pink turbinates. THROAT: No erythema or exudates. NECK: No masses, no JVD, no thyroid enlargement, no adenopathy. CHEST: No chest wall deformity. Symmetrical expansion. LUNGS: Equal air entry with no crackles, wheeze, rhonchi or dullness. CVS: Regular rate and rhythm, normal S1 and S2, no gallops, no murmurs, no rubs ABDOMEN: Soft, nontender. No hepatosplenomegaly, normal bowel sounds, no guarding or rigidity. EXTREMITIES: No clubbing, no edema, no cyanosis, 2+ pulses and upper and lower extremities. MUSCULOSKELETAL: Muscle strength and tone normal. SPINE: No scoliosis or deformity SKIN: No rashes CENTRAL NERVOUS SYSTEM: Alert and oriented -3. No focal deficits, tone is normal in all 4 extremities. PSYCHIATRIC: Alert and oriented -3. Appropriate affect. Intact judgment and insight. Results - Laboratory Findings CBC and BMP: 01/21/18 13:06 01/19/18 05:39 PT/INR, D-dimer PT 10.9 sec (9.0-12.0) 01/16/18 22:22 INR 1.1 (<1.2) 01/16/18 22:22 Abnormal lab findings: Abnormal Labs 01/16/18 01/16/18 01/16/18 22:12 22:22 22:22 WBC 20.2 H RBC Hgb Neutrophils # 17.4 H Monocytes # 1.3 H Sodium Chloride Carbon Dioxide BUN 21 H Glucose 113 H POC Glucose (mg/dL) 127 H Calcium Total Bilirubin 1.4 H Delta Bilirubin AST 186 H Total Creatine Kinase CK-MB (CK-2) Troponin I Total Protein Albumin HDL Cholesterol Ur Specific [place] Urine Protein Urine Ketones Urine Blood Ur Leukocyte Esterase Urine Mucus 01/16/18 01/17/18 01/17/18 22:22 00:33 04:20 WBC RBC Hgb Neutrophils # Monocytes # Sodium Chloride Carbon Dioxide BUN Glucose POC Glucose (mg/dL) 123 H Calcium Total Bilirubin Delta Bilirubin AST Total Creatine Kinase 822 H CK-MB (CK-2) 39.3 H 30.4 H Troponin I 30.400 H* 30.000 H* Total Protein Albumin HDL Cholesterol Ur Specific [place] Urine Protein Urine Ketones Urine Blood Ur Leukocyte Esterase Urine Mucus 01/17/18 01/17/18 01/17/18 04:20 04:20 10:58 WBC 17.5 H RBC Hgb Neutrophils # 13.9 H Monocytes # 1.4 H Sodium 136 L Chloride Carbon Dioxide 20 L BUN Glucose POC Glucose (mg/dL) Calcium 8.3 L Total Bilirubin Delta Bilirubin AST Total Creatine Kinase CK-MB (CK-2) Troponin I 25.600 H* Total Protein Albumin HDL Cholesterol Ur Specific [place] Urine Protein Urine Ketones Urine Blood Ur Leukocyte Esterase Urine Mucus 01/17/18 01/17/18 01/18/18 11:55 16:16 03:12 WBC RBC Hgb Neutrophils # Monocytes # Sodium 135 L Chloride 108 H Carbon Dioxide BUN Glucose 118 H POC Glucose (mg/dL) Calcium 8.0 L Total Bilirubin Delta Bilirubin 0.3 H AST 77 H Total Creatine Kinase CK-MB (CK-2) Troponin I 24.600 H* Total Protein 5.0 L Albumin 2.7 L HDL Cholesterol 31 L Ur Specific [place] 1.041 H Urine Protein 1+ H Urine Ketones Trace H Urine Blood Trace H Ur Leukocyte Esterase Small H Urine Mucus Rare H 01/18/18 01/18/18 01/19/18 03:12 04:20 05:39 WBC 15.0 H 13.2 H RBC 4.05 L 4.19 L Hgb 12.9 L 12.7 L Neutrophils # 12.0 H 10.7 H Monocytes # Sodium Chloride Carbon Dioxide BUN Glucose POC Glucose (mg/dL) Calcium Total Bilirubin Delta Bilirubin AST Total Creatine Kinase CK-MB (CK-2) Troponin I Total Protein Albumin HDL Cholesterol Ur Specific [place] Urine Protein Trace H Urine Ketones Urine Blood Ur Leukocyte Esterase Urine Mucus 01/19/18 01/20/18 01/21/18 05:39 06:10 13:06 WBC 10.9 H RBC 4.18 L Hgb Neutrophils # 7.9 H Monocytes # Sodium 136 L Chloride 109 H Carbon Dioxide 21 L BUN Glucose 100 H POC Glucose (mg/dL) Calcium 8.3 L Total Bilirubin Delta Bilirubin 0.4 H AST Total Creatine Kinase CK-MB (CK-2) Troponin I Total Protein 5.5 L Albumin 3.0 L HDL Cholesterol Ur Specific [place] Urine Protein Urine Ketones Urine Blood Ur Leukocyte Esterase Urine Mucus - Diagnostic Findings Chest x-ray: report reviewed, image reviewed CT scan - chest: report reviewed, image reviewed Additional studies: EKG, echocardiogram results reviewed Assessment and Plan Plan: Assessment: #1. Nonspecific loculated bilateral pleural effusions, no intervention is needed at this time. Patient will have follow-up in the pulmonary office with Dr. Raya #2. Acute ST elevated [place], status post angioplasty and stenting of the right coronary artery #3. Leukocytosis, febrile illness and appearance of mild basilar pulmonary infiltrates, underlying pneumonia could not entirely ruled out patient was treated with a combination of Rocephin and doxycycline, with subsequent resolution of leukocytosis and fevers. Urine Legionella antigen was negative, blood culture showed no growth. #4. Chronic and ongoing long-term nicotine dependence Plan: Chest x-rays, and CT chest were reviewed by Dr. Raya. Loculated bilateral pleural effusions noted on the CT chest not require any further intervention at this time. Patient can finish outpatient course of oral antibiotics, currently afebrile, the leukocytosis has resolved. Smoking cessation was strongly encouraged, and the patient is planning on quitting smoking. Patient will need follow-up in the pulmonary office with Dr. Raya for a follow-up chest x-ray and a full PFT. Patient is stable for discharge home today from pulmonary perspective. I performed a history & physical examination of the patient and discussed their management with my nurse practitioner, Kaya Nazario. I reviewed the nurse practitioner's note and agree with the documented findings and plan of care. Lung sounds are clear. The findings and the impression was discussed with the patient. I attest to the documentation by the nurse practitioner. Time with Patient: Greater than 30
== END 2018-01-22 15:05 | disposition home health service (06) | DRG 246 ==
LOC: EC 21:59 → SUPCPDRO 21:59 → 6ICU 23:05 → 6SEL 01-18 14:26 → UNDODISIN 01-20 18:40 → 6SEL 01-20 18:40
PROVIDERS: ADMIT Hospitalist; ATTEND Hospitalist
PROC: B211YZZ Fluoroscopy of Multiple Coronary Arteries using Other Contrast (ICD-10-PCS; 2018-01-16)
PROC: 027035Z Dilation of Coronary Artery, One Artery with Two Drug-eluting Intraluminal Devices, Percutaneous Approach (ICD-10-PCS; principal; 2018-01-16 23:00)
PROC: 4A023N7 Measurement of Cardiac Sampling and Pressure, Left Heart, Percutaneous Approach (ICD-10-PCS; 2018-01-16 23:00)
DX: I21.11 ST elevation (STEMI) myocardial infarction involving right coronary artery (principal); J18.9 Pneumonia, unspecified organism; E87.1 Hypo-osmolality and hyponatremia; I95.9 Hypotension, unspecified; I25.10 Atherosclerotic heart disease of native coronary artery without angina pectoris; E78.5 Hyperlipidemia, unspecified; N42.9 Disorder of prostate, unspecified; F17.210 Nicotine dependence, cigarettes, uncomplicated; Z71.6 Tobacco abuse counseling; Z79.899 Other long term (current) drug therapy
CPT/HCPCS: 36415; 71045; 71250; 80048; 80053; 80061; 80076; 81001; 81003; 82550; 82553; 83605; 83735; 84484; 85025; 85347; 85610; 85730; 87040; 87449; 93005; 93306; 93308; 93454; 96365; 96376; 99291

== ENCOUNTER 2018-06-23 14:27 | Inpatient (IN) | payer MEDICARE ==
[2018-06-23] MEDS ORDERED: ACETAMINOPHEN IV (For NPO) 1,000 MG in EMPTY BAG 1 BAG IVPB STA (14:41)
--- NOTE | 2018-06-23 14:49 | ED ---
General Adult HPI - General Stated complaint: EKG change Time Seen by Provider: 06/23/18 14:30 Source: patient, family, EMS, old records reviewed (I did review old EKG as well as limited paperwork as transfer from [facility].) Mode of arrival: EMS Limitations: no limitations - History of Present Illness Initial comments: Patient is a pleasant 68-year-old male presenting to the emergency department as a transfer from [facility] with concern for EKG changes. Patient did have bilateral leg weakness this morning and had a fall, no injury. Patient has had continued weakness all day. Symptoms are similar to previous heart attack were patient did have to go to the [facility] and have stenting done. Patient and both deny ever having any chest pain or back pain, despite report from [facility]. No reported fever. Patient admits to feeling somewhat weak all over. No dyspnea. No cough. No abdominal pain. No dysuria. - Related Data Home Medications Medication Instructions Recorded Confirmed Albuterol Sulfate [Proair Hfa] 2 puff INHALATION RT-Q6H PRN 01/16/18 06/23/18 Finasteride [Proscar] 5 mg PO DAILY 01/17/18 06/23/18 Clopidogrel [Plavix] 75 mg PO DAILY 06/23/18 06/23/18 Ipratropium-Albuterol Nebulize 3 ml INHALATION RT-QID 06/23/18 06/23/18 [Duoneb 0.5 mg-3 mg/3 ml Soln] Metoprolol Tartrate [Lopressor] 50 mg PO DAILY 06/23/18 06/23/18 Previous Rx's Medication Instructions Recorded Aspirin 81 mg PO DAILY #303 chew 01/19/18 Atorvastatin [Lipitor] 80 mg PO HS #30 tab 01/19/18 Lisinopril [Zestril] 2.5 mg PO DAILY #30 tab 01/19/18 Nitroglycerin Sl Tabs [Nitrostat] 0.4 mg SUBLINGUAL Q5M PRN #25 tab 01/19/18 Spironolactone [Aldactone] 25 mg PO DAILY #30 tab 01/19/18 Allergies Allergy/AdvReac Type Severity Reaction Status Date / Time No Known Allergies Allergy Verified 06/23/18 14:49 Review of Systems ROS Statement: Those systems with pertinent positive or pertinent negative responses have been documented in the HPI. ROS Other: All systems not noted in ROS Statement are negative. Constitutional: Denies: fever, chills Eyes: Denies: eye pain ENT: Denies: ear pain Respiratory: Denies: cough, dyspnea Cardiovascular: Denies: chest pain Endocrine: Reports: fatigue Gastrointestinal: Denies: abdominal pain Genitourinary: Denies: dysuria Musculoskeletal: Reports: back pain (Chronic and unchanged) Skin: Denies: rash Neurological: Reports: weakness (Bilateral leg). Denies: headache Past Medical History Past Medical History: Prostate Disorder History of Any Multi-Drug Resistant Organisms: None Reported Past Surgical History: No Surgical Hx Reported Past Psychological History: No Psychological Hx Reported Smoking Status: Current every day smoker Past Alcohol Use History: None Reported Past Drug Use History: None Reported General Exam Limitations: no limitations General appearance: alert, in no apparent distress Head exam: Present: atraumatic Eye exam: Present: normal appearance, PERRL ENT exam: Present: normal oropharynx Neck exam: Present: normal inspection Respiratory exam: Present: normal lung sounds bilaterally Cardiovascular Exam: Present: tachycardia Expanded Peripheral pulses: 2+: Radial (R), Radial (L), Posterior Tibialis (R), Posterior Tibialis (L) GI/Abdominal exam: Present: soft. Absent: tenderness Extremities exam: Present: normal inspection. Absent: pedal edema, calf tenderness Back exam: Present: normal inspection. Absent: vertebral tenderness Neurological exam: Present: alert, CN II-XII intact. Absent: motor sensory deficit Expanded Neurological exam: Present: protecting the airway Patient oriented to: Present: person, place. Absent: time Speech: Present: fluid speech Cranial nerves: EOM's Intact: Normal, Facial Sensation: Normal Sensory exam: Upper Extremity Light Touch: Normal, Lower Extremity Light Touch: Normal Motor strength exam: RUE: 5, LUE: 5, RLE: 5, LLE: 5 Psychiatric exam: Present: normal affect, normal mood Skin exam: Present: normal color Course Vital Signs 06/23/18 06/23/18 06/23/18 14:51 15:30 16:21 Temperature 102.4 F H Pulse Rate 126 H 116 H 116 H Respiratory 24 20 24 Rate Blood Pressure 125/82 126/81 108/69 O2 Sat by Pulse 97 98 96 Oximetry 06/23/18 17:04 Temperature 100.2 F H Pulse Rate 112 H Respiratory 19 Rate Blood Pressure 91/63 O2 Sat by Pulse 95 Oximetry - Reevaluation(s) Reevaluation #1: 06/23/18 14:48 Case was discussed with cardiology who agrees and not calling this a STEMI case at this time. He also agrees with further evaluation and will come evaluate the patient when he is done in the [facility] with a different patient. 06/23/18 17:07 Patient provided fluid bolus of 30 mL/kg based on ideal bodyweight of 67.1 kg which comes out to be 2013 mL. 06/23/18 17:08 Family requests patient does not see Dr. dia EKG Findings - EKG Comments: EKG Findings:: Sinus tachycardia 126. CO 174. QRS 76. QT 292. QTC 422. Left axis. Inferior Q waves. ST depression V1 and V2. ST elevation in inferior. EKG is similar to previous EKG dated 01/16/2018. Medical Decision Making - Medical Decision Making Patient reevaluated without significant change. Temperature remains 100.5 despite patient having mouth slightly cracked. Patient and family updated on results and plan. Patient was previously seen by Dr. Estrella who will continue to evaluate and does request heparin. I do have concern for possible infectious process, possible pneumonia. Patient will be covered with antibiotics. Case was discussed in detail with Dr. Bonner, who will admit, Dr. Mcfadden. - Lab Data Result diagrams: 06/23/18 14:56 06/23/18 14:56 Lab Results 06/23/18 06/23/18 06/23/18 Range/Units 14:56 14:56 14:56 WBC 14.4 H (3.8-10.6) k/uL RBC 4.79 (4.30-5.90) m/uL Hgb 15.3 (13.0-17.5) gm/dL Hct 45.4 (39.0-53.0) % MCV 94.7 (80.0-100.0) fL MCH 31.8 (25.0-35.0) pg MCHC 33.6 (31.0-37.0) g/dL RDW 13.1 (11.5-15.5) % Plt Count 226 (150-450) k/uL Neutrophils % 91 % Lymphocytes % 4 % Monocytes % 4 % Eosinophils % 0 % Basophils % 0 % Neutrophils # 13.1 H (1.3-7.7) k/uL Lymphocytes # 0.5 L (1.0-4.8) k/uL Monocytes # 0.5 (0-1.0) k/uL Eosinophils # 0.0 (0-0.7) k/uL Basophils # 0.1 (0-0.2) k/uL PT (9.0-12.0) sec INR (<1.2) APTT (22.0-30.0) sec Sodium 138 (137-145) mmol/L Potassium 4.6 (3.5-5.1) mmol/L Chloride 105 (98-107) mmol/L Carbon Dioxide 24 (22-30) mmol/L Anion Gap 9 mmol/L BUN 29 H (9-20) mg/dL Creatinine 1.20 (0.66-1.25) mg/dL Est GFR (CKD-EPI)AfAm 71 (>60 ml/min/1.73 sqM) Est GFR (CKD-EPI)NonAf 61 (>60 ml/min/1.73 sqM) Glucose 112 H (74-99) mg/dL Plasma Lactic Acid Rigo (0.7-2.0) mmol/L Calcium 9.1 (8.4-10.2) mg/dL Total Bilirubin 0.9 (0.2-1.3) mg/dL AST 24 (17-59) U/L ALT 40 (21-72) U/L Alkaline Phosphatase 89 (38-126) U/L Total Creatine Kinase 61 (55-170) U/L CK-MB (CK-2) 0.7 (0.0-2.4) ng/mL CK-MB (CK-2) Rel Index 1.1 Troponin I <0.012 (0.000-0.034) ng/mL Total Protein 6.7 (6.3-8.2) g/dL Albumin 4.1 (3.5-5.0) g/dL Urine Color Urine Appearance (Clear) Urine pH (5.0-8.0) Ur Specific [place] (1.001-1.035) Urine Protein (Negative) Urine Glucose (UA) (Negative) Urine Ketones (Negative) Urine Blood (Negative) Urine Nitrite (Negative) Urine Bilirubin (Negative) Urine Urobilinogen (<2.0) mg/dL Ur Leukocyte Esterase (Negative) Influenza Type A RNA (Not Detectd) Influenza Type B (PCR) (Not Detectd) 06/23/18 06/23/18 06/23/18 Range/Units 14:56 14:56 14:56 WBC (3.8-10.6) k/uL RBC (4.30-5.90) m/uL Hgb (13.0-17.5) gm/dL Hct (39.0-53.0) % MCV (80.0-100.0) fL MCH (25.0-35.0) pg MCHC (31.0-37.0) g/dL RDW (11.5-15.5) % Plt Count (150-450) k/uL Neutrophils % % Lymphocytes % % Monocytes % % Eosinophils % % Basophils % % Neutrophils # (1.3-7.7) k/uL Lymphocytes # (1.0-4.8) k/uL Monocytes # (0-1.0) k/uL Eosinophils # (0-0.7) k/uL Basophils # (0-0.2) k/uL PT 11.0 (9.0-12.0) sec INR 1.0 (<1.2) APTT 81.9 H (22.0-30.0) sec Sodium (137-145) mmol/L Potassium (3.5-5.1) mmol/L Chloride (98-107) mmol/L Carbon Dioxide (22-30) mmol/L Anion Gap mmol/L BUN (9-20) mg/dL Creatinine (0.66-1.25) mg/dL Est GFR (CKD-EPI)AfAm (>60 ml/min/1.73 sqM) Est GFR (CKD-EPI)NonAf (>60 ml/min/1.73 sqM) Glucose (74-99) mg/dL Plasma Lactic Acid Rigo 1.4 (0.7-2.0) mmol/L Calcium (8.4-10.2) mg/dL Total Bilirubin (0.2-1.3) mg/dL AST (17-59) U/L ALT (21-72) U/L Alkaline Phosphatase (38-126) U/L Total Creatine Kinase (55-170) U/L CK-MB (CK-2) (0.0-2.4) ng/mL CK-MB (CK-2) Rel Index Troponin I (0.000-0.034) ng/mL Total Protein (6.3-8.2) g/dL Albumin (3.5-5.0) g/dL Urine Color Urine Appearance (Clear) Urine pH (5.0-8.0) Ur Specific [place] (1.001-1.035) Urine Protein (Negative) Urine Glucose (UA) (Negative) Urine Ketones (Negative) Urine Blood (Negative) Urine Nitrite (Negative) Urine Bilirubin (Negative) Urine Urobilinogen (<2.0) mg/dL Ur Leukocyte Esterase (Negative) Influenza Type A RNA Not Detected (Not Detectd) Influenza Type B (PCR) Not Detected (Not Detectd) 06/23/18 Range/Units 15:33 WBC (3.8-10.6) k/uL RBC (4.30-5.90) m/uL Hgb (13.0-17.5) gm/dL Hct (39.0-53.0) % MCV (80.0-100.0) fL MCH (25.0-35.0) pg MCHC (31.0-37.0) g/dL RDW (11.5-15.5) % Plt Count (150-450) k/uL Neutrophils % % Lymphocytes % % Monocytes % % Eosinophils % % Basophils % % Neutrophils # (1.3-7.7) k/uL Lymphocytes # (1.0-4.8) k/uL Monocytes # (0-1.0) k/uL Eosinophils # (0-0.7) k/uL Basophils # (0-0.2) k/uL PT (9.0-12.0) sec INR (<1.2) APTT (22.0-30.0) sec Sodium (137-145) mmol/L Potassium (3.5-5.1) mmol/L Chloride (98-107) mmol/L Carbon Dioxide (22-30) mmol/L Anion Gap mmol/L BUN (9-20) mg/dL Creatinine (0.66-1.25) mg/dL Est GFR (CKD-EPI)AfAm (>60 ml/min/1.73 sqM) Est GFR (CKD-EPI)NonAf (>60 ml/min/1.73 sqM) Glucose (74-99) mg/dL Plasma Lactic Acid Rigo (0.7-2.0) mmol/L Calcium (8.4-10.2) mg/dL Total Bilirubin (0.2-1.3) mg/dL AST (17-59) U/L ALT (21-72) U/L Alkaline Phosphatase (38-126) U/L Total Creatine Kinase (55-170) U/L CK-MB (CK-2) (0.0-2.4) ng/mL CK-MB (CK-2) Rel Index Troponin I (0.000-0.034) ng/mL Total Protein (6.3-8.2) g/dL Albumin (3.5-5.0) g/dL Urine Color Light Yellow Urine Appearance Clear (Clear) Urine pH 5.5 (5.0-8.0) Ur Specific [place] 1.007 (1.001-1.035) Urine Protein Negative (Negative) Urine Glucose (UA) Negative (Negative) Urine Ketones Negative (Negative) Urine Blood Negative (Negative) Urine Nitrite Negative (Negative) Urine Bilirubin Negative (Negative) Urine Urobilinogen <2.0 (<2.0) mg/dL Ur Leukocyte Esterase Negative (Negative) Influenza Type A RNA (Not Detectd) Influenza Type B (PCR) (Not Detectd) - Radiology Data Radiology results: image reviewed (Chest x-ray read as fibrotic changes) Disposition Clinical Impression: Fever Disposition: ADMITTED IP TO THIS HOSP Is patient prescribed a controlled substance at d/c from ED?: No Referrals: Erika Urias MD [Primary Care Provider] - 1-2 days Decision Time: 17:09
[2018-06-23] MEDS: SODIUM CHLORIDE 0.9% 500 ML 500 ML IV SCH (15:20)
[2018-06-23 15:25] LABS: Basophils # (A) 0.1 k/uL (0-0.2); Basophils % (A) 0 %; Eosinophils % (A) 0 %; HCT 45.4 % (39.0-53.0); HGB 15.3 gm/dL (13.0-17.5); Lymphocytes # (A) 0.5 k/uL (1.0-4.8); Lymphocytes % (A) 4 %; MCH 31.8 pg (25.0-35.0); MCHC 33.6 g/dL (31.0-37.0); MCV 94.7 fL (80.0-100.0); Mean Platelet Volume 6.5; Monocytes # (A) 0.5 k/uL (0-1.0); Monocytes % (A) 4 %; Neutrophils # (A) 13.1 k/uL (1.3-7.7); Neutrophils % (A) 91 %; Platelet Count 226 k/uL (150-450); RBC 4.79 m/uL (4.30-5.90); RDW 13.1 % (11.5-15.5); WBC 14.4 k/uL (3.8-10.6)
[2018-06-23 15:34] LABS: Albumin 4.1 g/dL (3.5-5.0); Calcium 9.1 mg/dL (8.4-10.2); Potassium 4.6 mmol/L (3.5-5.1); Total Bilirubin 0.9 mg/dL (0.2-1.3); Total Protein 6.7 g/dL (6.3-8.2)
[2018-06-23 15:41] LABS: Partial Thromboplastin Time 81.9 sec (22.0-30.0)
[2018-06-23 15:50] LABS: Creatine Kinase 61 U/L (55-170)
--- NOTE | 2018-06-23 15:51 | CONS ---
CONSULTATION HISTORY: This is a 68-year-old gentleman with a history of smoking, COPD, CAD, hypertension and hypercholesterolemia. In January of last year he suffered from an acute non ST elevation DE and underwent stenting of distal RCA which was a very dominant vessel by Dr. Rodriguez. He quit smoking at that time, has been doing fairly well. Generally, patient is very limited in his activity. He is not very steady on his feet and needs help in moving. However, for the last 2 days he has been having cough with expectoration, bringing up yellowish sputum and also felt weak and tired. However, today he was trying to transfer from 1 couch to the other and he did not have enough energy and he fell on the love seat. His was concerned his and she called for some help and they sat him in the car and took him to [facility]. At [facility], they performed the EKG, which showed QS pattern in the inferior leads with ST elevation, which seems to be a chronic finding and they promptly sent him here with concern that he may be having an acute inferior DE. At no point in time with the patient have any chest pain and he is asymptomatic at this time. He does not have any discomfort in the chest. He is resting comfortably, but complains of generalized weakness, lack of energy, and he feels that he has he has become weaker over the last 3 to 4 days. His temperature is about 103. It appears that he is having an upper respiratory infection with fever, probably a flu-like illness, and it does not appear to be an acute ischemic syndrome based on my clinical evaluation. EKG does not reveal any new changes, this EKG is very similar to the one in January. He has no chest pain. PAST MEDICAL HISTORY: Smoking and COPD, CAD with stenting of right coronary artery performed in January of [address] Rodriguez. He had a drug-eluting stent that was deployed in the distal right coronary artery and this was a 3.5 caliber 18 mm long Xience stent. This patient also has some degenerative joint disease of the spine and weakness of his lower extremities. MEDICATIONS: At home include: 1. Aspirin. 2. Plavix. 3. Metoprolol tartrate 50 mg daily. 4. Zestril 2.5 mg daily. 5. Sublingual nitroglycerin p.r.n. 6. Aldactone 25 mg daily. 7. He also takes some albuterol inhalers and atorvastatin 80 mg daily. PHYSICAL EXAMINATION: Blood pressure is 124/80, pulse rate is about 100 per minute. HEENT: Unremarkable. Fundus was not examined by me NECK: Supple. There is no JVD. I cannot hear any carotid bruit. HEART: Reveals S1, S2 heard normally. There is no significant murmur audible. LUNGS: Diminished air entry bilateral lung drake. ABDOMEN: Soft, nontender. EXTREMITIES: Lower extremities reveal palpable pulses. No edema. CENTRAL NERVOUS SYSTEM: Normal. EKG revealed a sinus mechanism with a QS pattern in inferior leads with prominent ST- segment, very similar to the ones in January. There are no other area of new changes. This may be an old inferior posterior DE. LABORATORY DATA: Pending. The patient's temperature is about 102.4. IMPRESSION: 1. Febrile condition with upper respiratory infection, possible rule out influenza or other related upper respiratory tract infections. 2. Coronary artery disease with a known history of RCA stenting in January. Current presentation does not support acute myocardial ischemia, however, we will follow this very closely. 3. Past history of smoking and COPD. RECOMMENDATIONS: I will heparinize him for 24 hours. Follow serial troponins. We will do influenza screening blood cultures, lactic acid, and other workup as outlined by the emergency room physician. I do not believe we are dealing with acute ischemic syndrome at this time, but we will heparinize him and follow serial EKGs and troponins. I discussed my thoughts in detail with the patient and his and daughter. Thank you very much for the consult. ANTONIO / REGISN: [id number] /
[2018-06-23 16:00] LABS: Appearance,Urine Clear (Clear); Bilirubin,Urine Negative (Negative); Blood,Urine Negative (Negative); Color,Urine Light Yellow; Glucose,Urine (UA) Negative (Negative); Ketones,Urine Negative (Negative); Leukocyte Esterase,Urine Negative (Negative); Nitrite,Urine Negative (Negative); PH, Urine 5.5 (5.0-8.0); Protein,Urine Negative (Negative); Specific Gravity,Urine 1.007 (1.001-1.035); Urobilinogen,Urine <2.0 mg/dL (<2.0)
[2018-06-23 16:02] LABS: Creatine Kinase MB 0.7 ng/mL (0.0-2.4); Troponin I <0.012 ng/mL (0.000-0.034)
--- NOTE | 2018-06-23 16:33 | XR ---
EXAMINATION TYPE: XR chest 2V DATE OF EXAM: 06/23/2018 COMPARISON: 02/01/2018 HISTORY: Fever TECHNIQUE: Frontal and lateral views of the chest are obtained. FINDINGS: There is coarsening of interstitial markings in the lower lobes. There is no heart failure . Heart size is normal. There is minor spurring in the thoracic spine. There are chest leads. IMPRESSION: Fibrotic changes at the lung bases. Pleural diaphragmatic scarring. No acute lung diseas e. No significant change compared to old exam.
[2018-06-23] MEDS ORDERED: SODIUM CHLORIDE 0.9% 100 ML IV STA (17:05)
[2018-06-23] MEDS ORDERED: SODIUM CHLORIDE 0.9% 1,000 ML IV STA ×2 (17:05)
[2018-06-23] MEDS ORDERED: HEPARIN SODIUM,PORCINE 5,000 UNIT/ML 1 ML VIAL IV PRN (17:09)
[2018-06-23] MEDS ORDERED: PNEUMONIA PROTOCOL UTILIZED 1 EACH MISC PO PRN (17:09)
[2018-06-23] MEDS ORDERED: ASPIRIN 81 MG PO STA (17:09)
[2018-06-23] MEDS ORDERED: NITROGLYCERIN SL TABS 0.4 MG TAB SUBLINGUAL PRN (17:09)
[2018-06-23] MEDS ORDERED: AZITHROMYCIN 500 MG in SODIUM CHLORIDE 0.9% 250 ML IVPB STA (17:09)
[2018-06-23] MEDS ORDERED: IPRATROPIUM-ALBUTEROL 3 ML NEB INHALATION PRN (17:09)
[2018-06-23] MEDS ORDERED: HEPARIN SOD,PORK IN 0.45% NACL 25,000 UNIT in 0.45% NACL 1 250ML.BAG IV SCH (17:15)
[2018-06-23] MEDS: SODIUM CHLORIDE 0.9% 1,000 ML IV SCH ×2 (18:48→21:29)
[2018-06-23 19:45] VITALS: BMI 27.4
[2018-06-23] MEDS ORDERED: ALPRAZolam 0.25 MG TAB PO PRN (20:06)
[2018-06-23] MEDS ORDERED: HYDROcodone/APAP 5-325MG 1 EACH TAB PO PRN (20:06)
[2018-06-23] MEDS ORDERED: ACETAMINOPHEN TAB 500 MG TAB PO PRN (20:06)
[2018-06-23] MEDS ORDERED: MELATONIN 3 MG TABLET PO PRN (20:06)
[2018-06-23] MEDS: IPRATROPIUM-ALBUTEROL 3 ML NEB INHALATION SCH (21:03)
[2018-06-23] MEDS: ATORVASTATIN 80 MG TAB PO SCH (21:28)
[2018-06-23] MEDS: methylPREDNISolone SOD SUCCI 125 MG/2 ML VIAL IV SCH (21:28)
--- NOTE | 2018-06-23 21:40 | HP ---
HISTORY AND PHYSICAL DATE OF ADMISSION: 06/23/2018 CHIEF COMPLAINTS: Weakness and cough history and abnormal EKG. HISTORY OF PRESENT ILLNESS: This 68-year-old gentleman with a past medical history of multiple medical problems including CAD, history of COPD, hyperlipidemia, history of myocardial infarction, DJD, history of CAD, stent being followed by Dr. Urias. The patient is not feeling well over the past 1 week. The patient has some cough. The patient today complaining of weakness. The bilateral leg weakness in the morning. The patient had a fall without injury apparently. Because of increasing weakness and cough, patient taken to [facility] where the EKG showed a ST-segment elevation tachycardia. Patient was transferred to [facility] for possibility of non ST-segment elevation myocardial infarction. The case reviewed by Dr. Marguerite Estrella who thought that of the changes were rather stable and the patient admitted to the hospital further recommendations to follow. The patient running fever. The chest x-ray was done in the ER which was reviewed and showed fibrotic changes and no acute changes. The patient is started on antibiotics. Patient being closely monitored at this time. There is no history of headache, loss of consciousness, any palpitations, hematochezia, any chest pain at this time. PAST MEDICAL HISTORY: History of CAD, stent, COPD, hyperlipidemia, myocardial infarction, DJD. MEDICATIONS: Prior to admission include home medications are: 1. Aldactone 25 mg p.o. daily. 2. Nitrostat 0.4 mg p.r.n. 3. Lopressor 50 mg q.h.s. 4. Zestril 2.5 mg daily. 5. DuoNeb q.i.d. and p.r.n. 6. Proscar 5 mg p.o. daily. 7. Plavix 75 mg. 8. Lipitor 80 mg q.h.s. 9. Aspirin 81 mg daily. 10.Albuterol 2 puffs q.6h p.r.n. ALLERGIES: None. FAMILY HISTORY: History of dementia, coronary artery disease in the family. SOCIAL HISTORY: Previous history of smoking. No history of current smoking or alcohol intake. REVIEW OF SYSTEMS: ENT: Diminished hearing and diminished vision. CARDIOVASCULAR SYSTEM: As mentioned earlier. RESPIRATORY: As mentioned earlier. GI no nausea or vomiting. no dysuria. Nervous system: No numbness, weakness. ALLERGY/IMMUNOLOGY: No asthma or hayfever. MUSCULOSKELETAL: As mentioned earlier. HEMATOLOGY/ONCOLOGY: No history of anemia. ENDOCRINE: No history of diabetes or hypothyroidism. CONSTITUTIONAL: as mentioned earlier. Dermatology: Negative. Rheumatology: Negative. Psychiatry: As mentioned earlier. PHYSICAL EXAMINATION: GENERAL: Alert and oriented x3. VITAL SIGNS: Pulse 114, blood pressure 140/80, respiratory rate 19, temperature 100.2, pulse ox 94% on room air. HEENT: Conjunctivae normal. Oral mucosa moist. NECK is no jugular venous distention. No carotid bruit. No lymph node enlargement. CARDIOVASCULAR: S1, S2 muffled. RESPIRATORY: Breath sounds diminished in the bases. Bilateral scattered rhonchi and crackles. Expiratory wheezing also present. ABDOMEN: Soft, nontender. No mass palpable. Legs no edema. No swelling. NERVOUS SYSTEM: Higher functions as mentioned earlier. Moves all 4 limbs. No focal motor or sensory deficits. Lymphatics: No lymph nodes palpable in the neck, axillae or groin. SKIN: No ulcer. No rash, no bleeding. LAB STUDIES: WBC 14.2, hemoglobin 15.3, INR is 1, glucose 112. UA noted. Influenza negative. ASSESSMENT: 1. Fever with possible chronic obstructive pulmonary disease acute exacerbation with acute purulent tracheobronchitis. 2. Tachycardia with ST changes in the EKG with QRS complexes with no change from the baseline. 3. History of coronary artery disease/stent. 4. History of chronic obstructive pulmonary disease. 5. Hyperlipidemia. 6. History of myocardial infarction. 7. History of degenerative joint disease. 8. History of prostate disorder. 9. Remote history of nicotine dependence. 10.Increased WBC. 11.Increased random blood sugar. RECOMMENDATIONS AND DISCUSSION: In this 68-year-old gentleman who presented with multiple complex medical issues, we will monitor the patient closely. Continue the current management and symptomatic treatment. Otherwise at this time I recommend bronchodilators short course of steroids and closely monitor with Cardiology. Heparin drip per Cardiology. Prognosis guarded because of multiple complex medical issues. Further recommendations to follow. Pulmonary is being consulted and further recommendations. A copy of dictation being forwarded to Dr. Urias who is the primary physician. MMODL / IJN: [id number] /
[2018-06-23 21:42] LABS: Glucose,Whole Blood 110 mg/dL (75-99)
[2018-06-23] MEDS: INSULIN ASPART (NovoLOG) 100 UNIT/ML VIAL SQ SCH (21:55)
[2018-06-23 23:21] LABS: Creatine Kinase MB 1.5 ng/mL (0.0-2.4)
[2018-06-23 23:28] LABS: Troponin I 0.05 ng/mL (0.000-0.034)
[2018-06-24] MEDS: methylPREDNISolone SOD SUCCI 125 MG/2 ML VIAL IV SCH ×3 (00:30→12:01)
[2018-06-24 04:00] LABS: Basophils % (A) 0 %; Eosinophils % (A) 0 %; HCT 40.5 % (39.0-53.0); HGB 13.7 gm/dL (13.0-17.5); Lymphocytes # (A) 0.5 k/uL (1.0-4.8); Lymphocytes % (A) 2 %; MCHC 33.8 g/dL (31.0-37.0); MCV 94.9 fL (80.0-100.0); Mean Platelet Volume 6.4; Monocytes # (A) 0.5 k/uL (0-1.0); Monocytes % (A) 2 %; Neutrophils # (A) 20.9 k/uL (1.3-7.7); Neutrophils % (A) 95 %; Platelet Count 199 k/uL (150-450); RBC 4.26 m/uL (4.30-5.90); RDW 13.3 % (11.5-15.5)
[2018-06-24 04:22] LABS: Anion Gap 6 mmol/L; Blood Urea Nitrogen 21 mg/dL (9-20); Calcium 8.2 mg/dL (8.4-10.2); Carbon Dioxide 20 mmol/L (22-30); Chloride 112 mmol/L (98-107); Cholesterol 90 mg/dL (<200); Glucose 135 mg/dL (74-99); HDL Cholesterol 49 mg/dL (40-60); LDL Cholesterol,Calculated 34 mg/dL (0-99); Sodium 138 mmol/L (137-145); Triglycerides 35 mg/dL (<150)
[2018-06-24 04:24] LABS: Potassium 4.4 mmol/L (3.5-5.1)
[2018-06-24 04:52] LABS: Troponin I 0.041 ng/mL (0.000-0.034)
[2018-06-24 05:10] LABS: Glucose,Whole Blood 133 mg/dL (75-99)
[2018-06-24] MEDS: INSULIN ASPART (NovoLOG) 100 UNIT/ML VIAL SQ SCH ×4 (05:24→20:47)
[2018-06-24] MEDS: PANTOPRAZOLE 40 MG TABLET PO SCH (05:24)
[2018-06-24] MEDS: IPRATROPIUM-ALBUTEROL 3 ML NEB INHALATION SCH ×4 (07:19→20:22)
[2018-06-24] MEDS: ASPIRIN 325 MG TAB PO SCH (09:09)
[2018-06-24] MEDS: FINASTERIDE 5 MG TAB PO SCH (09:10)
[2018-06-24] MEDS: SPIRONOLACTONE 25 MG TAB PO SCH (09:10)
[2018-06-24] MEDS: LISINOPRIL 2.5 MG TAB PO SCH (09:10)
[2018-06-24] MEDS: CLOPIDOGREL 75 MG TAB PO SCH (09:10)
[2018-06-24] MEDS: AZITHROMYCIN 500 MG TAB PO SCH (09:10)
[2018-06-24] MEDS: HEPARIN SODIUM,PORCINE 5,000 UNIT/ML 1 ML VIAL SQ SCH ×2 (09:10→20:47)
[2018-06-24] MEDS: METOPROLOL TARTRATE 50 MG TAB PO SCH (09:10)
--- NOTE | 2018-06-24 09:45 | XR ---
EXAMINATION TYPE: XR chest 2V DATE OF EXAM: 06/24/2018 COMPARISON: None HISTORY: 68-year-old male follow-up pneumonia TECHNIQUE: AP and lateral views FINDINGS: Heart is upper limits of normal in size. Diffuse interstitial prominence is similar. Patchy bibasilar opacities persist. Possible trace effusion on the left. IMPRESSION: 1. Interstitial changes and borderline heart size. Correlate for possible mild pulmonary vascular con gestion. 2. Patchy bibasilar areas of atelectasis or infiltrates persist. Trace left effusion may be present.
[2018-06-24 11:31] LABS: Glucose,Whole Blood 164 mg/dL (75-99)
--- NOTE | 2018-06-24 15:12 | P.PN ---
Subjective Progress Note Date: 06/24/18 This is 68-year-old gentleman with history of smoking, COPD, coronary artery disease, hypertension, hyperlipidemia, who has history of a non-ST elevation AL in January of last year which time he underwent RCA stenting by Dr. Rodriguez. For the past 2 days prior to his admission here patient had been having a cough of yellow productive sputum, he's also noticed himself to be progressively more weak. He apparently experienced a fall, presented to [facility]. His initial EKG was questionable for an ST elevation AL for which he was transferred here and a cardiology consultation was obtained. Temperature had been running in the 103 range, and he is currently on antibiotics for possible upper respiratory infection. The patient was seen by Dr. Bradley Estrella in consultation, he did not feel that the patient was having any acute coronary event. An echocardiogram with Doppler study has been requested. Patient seen and examined today, sitting up in the chair at bedside. Repeat chest x-ray was performed today that showed interstitial changes and borderline heart size, possible mild pulmonary vascular congestion. There is an infiltrate may be present. 100/60 blood pressure with a heart rate in the 90s. No chest discomfort. Objective - Vital Signs Vital signs: Vital Signs Temp 98.1 F 06/24/18 12:00 Pulse 91 06/24/18 12:00 Resp 18 06/24/18 12:00 BP 100/63 06/24/18 12:00 Pulse Ox 96 06/24/18 12:00 Intake & Output 06/23/18 06/24/18 06/24/18 18:59 06:59 18:59 Intake Total 240 62.898 1270 Output Total 250 Balance 240 -238.597 8060 Weight 79.424 kg 80 kg Intake: Intake, IV Titration 62.898 850 Amount Heparin Sod,Pork in 0.45% 62.898 NaCl 25,000 unit In 0.45 % NaCl 1 250ml.bag @ 12 UNITS/KG/HR 9.53 mls/hr IV .Q24H [facility] Rx#: [id number] Sodium Chloride 0.9% 1, 800 000 ml @ 100 mls/hr IV . Q10H [facility] Rx#:[id number] cefTRIAXone 1 gm In 50 Sodium Chloride 0.9% 50 ml @ 100 mls/hr IVPB ONCE STA Rx#:[id number] Oral 240 420 Output: Urine 250 Other: Voiding Method Urinal Diaper # Voids 1 - Exam PHYSICAL EXAMINATION: GENERAL: 68-year-old gentleman in no acute distress at the time of my examination HEENT: Head is atraumatic, normocephalic. Pupils equal, round. Sclera anicteric. Conjunctiva are clear. Mucous membranes of the mouth are moist. Neck is supple. There is no elevated jugular venous pressure.] bruit is heard. HEART EXAMINATION: Heart S1, S2 normal. No murmur or gallop heard. CHEST EXAMINATION: On's reveal scattered coarse rhonchi and wheezing throughout. ABDOMEN: Soft, nontender. Bowel sounds are heard. No organomegaly noted. EXTREMITIES: 2+ peripheral pulses with no evidence of peripheral edema and no calf tenderness noted. NEUROLOGIC patient is awake, alert and oriented ?-3. . - Labs CBC & Chem 7: 06/24/18 03:43 06/24/18 03:43 Labs: Abnormal Lab Results - Last 24 Hours (Table) 06/23/18 06/23/18 06/23/18 Range/Units 14:56 14:56 14:56 WBC 14.4 H (3.8-10.6) k/uL RBC (4.30-5.90) m/uL Neutrophils # 13.1 H (1.3-7.7) k/uL Lymphocytes # 0.5 L (1.0-4.8) k/uL APTT 81.9 H (22.0-30.0) sec Chloride (98-107) mmol/L Carbon Dioxide (22-30) mmol/L BUN 29 H (9-20) mg/dL Glucose 112 H (74-99) mg/dL POC Glucose (mg/dL) (75-99) mg/dL Calcium (8.4-10.2) mg/dL Troponin I (0.000-0.034) ng/mL 06/23/18 06/23/18 06/24/18 Range/Units 20:52 21:40 03:35 WBC (3.8-10.6) k/uL RBC (4.30-5.90) m/uL Neutrophils # (1.3-7.7) k/uL Lymphocytes # (1.0-4.8) k/uL APTT 33.0 H (22.0-30.0) sec Chloride (98-107) mmol/L Carbon Dioxide (22-30) mmol/L BUN (9-20) mg/dL Glucose (74-99) mg/dL POC Glucose (mg/dL) 110 H (75-99) mg/dL Calcium (8.4-10.2) mg/dL Troponin I 0.050 H* (0.000-0.034) ng/mL 06/24/18 06/24/18 06/24/18 Range/Units 03:43 03:43 03:43 WBC 22.0 H (3.8-10.6) k/uL RBC 4.26 L (4.30-5.90) m/uL Neutrophils # 20.9 H (1.3-7.7) k/uL Lymphocytes # 0.5 L (1.0-4.8) k/uL APTT (22.0-30.0) sec Chloride 112 H (98-107) mmol/L Carbon Dioxide 20 L (22-30) mmol/L BUN 21 H (9-20) mg/dL Glucose 135 H (74-99) mg/dL POC Glucose (mg/dL) (75-99) mg/dL Calcium 8.2 L (8.4-10.2) mg/dL Troponin I 0.041 H* (0.000-0.034) ng/mL 06/24/18 06/24/18 Range/Units 05:07 11:15 WBC (3.8-10.6) k/uL RBC (4.30-5.90) m/uL Neutrophils # (1.3-7.7) k/uL Lymphocytes # (1.0-4.8) k/uL APTT (22.0-30.0) sec Chloride (98-107) mmol/L Carbon Dioxide (22-30) mmol/L BUN (9-20) mg/dL Glucose (74-99) mg/dL POC Glucose (mg/dL) 133 H 164 H (75-99) mg/dL Calcium (8.4-10.2) mg/dL Troponin I (0.000-0.034) ng/mL Microbiology - Last 24 Hours (Table) 06/23/18 15:33 Urine Culture - Preliminary Urine,Catheterized Assessment and Plan Plan: Assessment and plan #1 fever with possible acute tracheobronchitis and COPD exacerbation. Elevated white blood cell count influenza A and B- #2 tachycardia with no evidence of ST elevation #3 history of coronary artery disease with prior stent placement #4 hyperlipidemia #5 nicotine dependence history #6 hyperlipidemia Plan We will review the echo cardiac gram with Doppler study. Continue current medications at present. Patient is currently receiving treatment for tracheal bronchitis. We will continue same. DNP note has been reviewed, I agree with a documented findings and plan of care. Patient was seen and examined.
[2018-06-24] MEDS: SODIUM CHLORIDE 0.9% 1,000 ML IV SCH ×2 (15:36→20:47)
[2018-06-24 16:24] LABS: Glucose,Whole Blood 138 mg/dL (75-99)
--- NOTE | 2018-06-24 16:46 | P.CNPUL ---
History of Present Illness Consult date: 06/24/18 Reason for consult: dyspnea, cough Chief complaint: Fever, cough History of present illness: This is a 68-year-old gentleman who presented to the emergency department from [facility]. The patient went to the hospital with a chief complaint of leg weakness and cough. He states that the last time he had weakness like this he was found to have a heart attack and he feels like his symptoms are the same. At the hospital he was found to have a fever and concerning EKG changes. The patient states in January of last year he had a heart attack and needed stents. He and his did quit smoking at that time. He used to smoke 2 packs per day for "many years." The patient states that over the last few days he did feel like he was getting sick at home. He did have fevers and chills at home. He does note that his grandson had a cold and he was exposed to him. He does have a history of COPD and "scarring due to asbestos." The patient does use a nebulizer at home and uses duo neb. He denies chest pain. The patient did have a chest x-ray this morning which showed interstitial changes, mild pulmonary vascular congestion, by basilar atelectasis and scarring. The patient states at home he was wheezing but it seems to improve with his breathing treatments. Review of Systems All systems: negative Past Medical History Past Medical History: Coronary Artery Disease (CAD), COPD, Hyperlipidemia, Myocardial Infarction (AL), Osteoarthritis (OA), Prostate Disorder Last Myocardial Infarction Date:: 2017 History of Any Multi-Drug Resistant Organisms: None Reported Past Surgical History: Heart Catheterization With Stent Additional Past Surgical History / Comment(s): Patient states right hand surgery. Past Anesthesia/Blood Transfusion Reactions: No Reported Reaction Date of Last Stent Placement:: March 2018 Past Psychological History: No Psychological Hx Reported Smoking Status: Former smoker Past Alcohol Use History: None Reported Additional Past Alcohol Use History / Comment(s): PPD smoker Past Drug Use History: None Reported - Past Family History Mother Family Medical History: Dementia Father Additional Family Medical History / Comment(s): Dad of heart attack. Medications and Allergies Home Medications Medication Instructions Recorded Confirmed Type Albuterol Sulfate [Proair Hfa] 2 puff INHALATION RT-Q6H PRN 01/16/18 06/23/18 History Finasteride [Proscar] 5 mg PO DAILY 01/17/18 06/23/18 History Aspirin 81 mg PO DAILY #303 chew 01/19/18 06/23/18 Rx Atorvastatin [Lipitor] 80 mg PO HS #30 tab 01/19/18 06/23/18 Rx Lisinopril [Zestril] 2.5 mg PO DAILY #30 tab 01/19/18 06/23/18 Rx Nitroglycerin Sl Tabs [Nitrostat] 0.4 mg SUBLINGUAL Q5M PRN #25 tab 01/19/18 Rx Spironolactone [Aldactone] 25 mg PO DAILY #30 tab 01/19/18 06/23/18 Rx Clopidogrel [Plavix] 75 mg PO DAILY 06/23/18 06/23/18 History Ipratropium-Albuterol Nebulize 3 ml INHALATION RT-QID 06/23/18 06/23/18 History [Duoneb 0.5 mg-3 mg/3 ml Soln] Metoprolol Tartrate [Lopressor] 50 mg PO DAILY 06/23/18 06/23/18 History Allergies Allergy/AdvReac Type Severity Reaction Status Date / Time No Known Allergies Allergy Verified 06/23/18 14:49 Physical Exam Osteopathic Statement: *. No significant issues noted on an osteopathic structural exam other than those noted in the History and Physical/Consult. Vitals: Vital Signs Temp Pulse Pulse Resp BP BP Pulse Ox 06/24/18 16:24 90 06/24/18 16:14 88 06/24/18 12:00 98.1 F 91 18 100/63 96 06/24/18 10:42 94 06/24/18 10:31 92 06/24/18 07:55 98 F 88 18 103/64 95 06/24/18 07:30 104 H 06/24/18 07:19 100 06/24/18 05:26 121/80 06/24/18 03:47 98.5 F 102 H 16 91/57 93 L 06/24/18 03:18 91 16 06/24/18 01:00 98.9 F 06/24/18 00:00 100.7 F H 118 H 18 06/23/18 23:00 101.1 F H 118 H 18 108/64 91 L 06/23/18 21:06 114 H 02/16/19 20:00 99.2 F 114 H 18 106/60 93 L 06/23/18 18:19 114 H 19 114/82 94 L 06/23/18 17:04 100.2 F H 112 H 19 91/63 95 Intake and Output 06/24/18 06/24/18 06/24/18 06:59 14:59 22:59 Intake Total 62.898 1270 Output Total 250 Balance -457.960 2629 Intake: Intake, IV Titration 62.898 850 Amount Heparin Sod,Pork in 0.45% 62.898 NaCl 25,000 unit In 0.45 % NaCl 1 250ml.bag @ 12 UNITS/KG/HR 9.53 mls/hr IV .Q24H [facility] Rx#: [id number] Sodium Chloride 0.9% 1, 800 000 ml @ 100 mls/hr IV . Q10H [facility] Rx#:[id number] cefTRIAXone 1 gm In 50 Sodium Chloride 0.9% 50 ml @ 100 mls/hr IVPB ONCE STA Rx#:[id number] Oral 420 Output: Urine 250 Other: Voiding Method Urinal Diaper # Voids 1 Weight 80 kg Gen.: Patient is alert and oriented 3, no acute distress Cardiovascular: Regular rate and rhythm, S1/S2 Lungs: I lateral expiratory wheezing Abdomen: Soft nontender nondistended positive bowel sounds Extremities: No edema Results - Laboratory Findings CBC and BMP: 06/24/18 03:43 06/24/18 03:43 PT/INR, D-dimer PT 11.0 sec (9.0-12.0) 06/23/18 14:56 INR 1.0 (<1.2) 06/23/18 14:56 Abnormal lab findings: Abnormal Labs 06/23/18 06/23/18 06/23/18 14:56 14:56 14:56 WBC 14.4 H RBC Neutrophils # 13.1 H Lymphocytes # 0.5 L APTT 81.9 H Chloride Carbon Dioxide BUN 29 H Glucose 112 H POC Glucose (mg/dL) Calcium Troponin I 06/23/18 06/23/18 06/24/18 20:52 21:40 03:35 WBC RBC Neutrophils # Lymphocytes # APTT 33.0 H Chloride Carbon Dioxide BUN Glucose POC Glucose (mg/dL) 110 H Calcium Troponin I 0.050 H* 06/24/18 06/24/18 06/24/18 03:43 03:43 03:43 WBC 22.0 H RBC 4.26 L Neutrophils # 20.9 H Lymphocytes # 0.5 L APTT Chloride 112 H Carbon Dioxide 20 L BUN 21 H Glucose 135 H POC Glucose (mg/dL) Calcium 8.2 L Troponin I 0.041 H* 06/24/18 06/24/18 06/24/18 05:07 11:15 16:17 WBC RBC Neutrophils # Lymphocytes # APTT Chloride Carbon Dioxide BUN Glucose POC Glucose (mg/dL) 133 H 164 H 138 H Calcium Troponin I - Diagnostic Findings Chest x-ray: report reviewed, image reviewed Assessment and Plan Assessment: Acute hypoxic respiratory failure Acute exacerbation of COPD Tracheobronchitis Chronic interstitial changes which are unchanged 4 out of 4 SIRS, sepsis Mild non-anion gap metabolic acidosis Hyperglycemia NSTEMI History of coronary artery disease, status post PCI Dyslipidemia History of tobacco abuse, in remission O2 to maintain saturation greater than or equal to 90% IV fluid hydration Blood, sputum, urine cultures Antibiotics: Azithromycin and Rocephin Pulmicort and duo nebs Singpaulair AM CXR Mucinex Incentive spirometry and pulmonary hygiene Cardiology recommendations Solumedrol taper Thank you for this consultation. We will continue to follow along.
--- NOTE | 2018-06-24 17:29 | PN ---
PROGRESS NOTE DATE OF SERVICE: 06/24/2018. HISTORY: This 68-year-old gentleman who was admitted with weakness and COPD and multiple other medical problems, was suspected to have acute myocardial infarction, but currently ST changes are old in nature and the patient is being closely monitored. The troponin was found to be 0.051. PAST MEDICAL HISTORY: Reviewed. REVIEW OF SYSTEMS: CARDIOVASCULAR: No angina or palpitations. RESPIRATORY: As mentioned earlier. GI: As mentioned earlier. : No dysuria or hematuria. CURRENT MEDICATIONS: 1. Tylenol 500 mg patient p.r.n. 2. [place] family. 3. DuoNeb q.i.d. and p.r.n. 4. Xanax 0.5 t.i.d. 5. Aspirin 81 mg. 6. Lipitor. 7. Azithromycin. 8. Rocephin. 9. Proscar. 10.NovoLog. 11.Zestril. 12.Melatonin. 13.Solu-Medrol 60 IV every 6 hours. 14.Nitrostat. 15.Protonix. 16.Aldactone. PHYSICAL EXAMINATION: Alert, oriented x3, pulse 91, blood pressure 160/80, respiration 18, temperature 98.1, pulse ox 97% on 2 L. HEENT: Conjunctivae normal. LUNGS: Breath sounds diminished in the bases. Bilateral scattered rhonchi and crackles. ABDOMEN: Soft, nontender. EXTREMITIES: Legs no edema, no swelling. NERVOUS SYSTEM: No focal deficits. LAB STUDIES: WBC 22, troponin noted. ASSESSMENT: 1. Fever with possible chronic obstructive pulmonary disease acute exacerbation with acute purulent tracheobronchitis. 2. Tachycardia with changes on EKG with QRS complexes, no change from the baseline per Cardiology. 3. Troponin indeterminate with 0.041. 4. History of CAD with stent. 5. Chronic obstructive pulmonary disease. 6. Hyperlipidemia history. 7. History of degenerative joint disease. 8. History of prostate disorder. 9. Remote history of nicotine dependence. 10.Increased WBC. 11.Increased random blood sugar. 12.NO CODE, NO CPR, NO VENT. RECOMMENDATIONS AND DISCUSSION: In this 68-year-old gentleman who presented with multiple complex medical problems. We will monitor the patient closely. Continue current medications and bronchodilators. Continue with steroids. Monitor blood sugars closely. Otherwise, recommend taper the steroids further. Close followup with Cardiology. Guarded prognosis. Continue the antibiotics. Discussed with family at length. Further recommendations to follow. MMODL / IJN: [id number] /
[2018-06-24] MEDS: BUDESONIDE 0.5 MG/2 ML NEBU INHALATION SCH (20:22)
[2018-06-24 20:42] LABS: Glucose,Whole Blood 168 mg/dL (75-99)
[2018-06-24] MEDS: guaiFENesin 600 MG TABLET.ER PO SCH (20:47)
[2018-06-24] MEDS: ATORVASTATIN 80 MG TAB PO SCH (20:47)
[2018-06-24] MEDS ORDERED: MONTELUKAST 10 MG TAB PO SCH (21:00)
[2018-06-24] MEDS: methylPREDNISolone SOD SUCCI 40 MG/ML 1 ML VIAL IV SCH (23:20)
[2018-06-25 05:09] VITALS: RESP 20
[2018-06-25 05:27] LABS: Glucose,Whole Blood 135 mg/dL (75-99)
[2018-06-25] MEDS: INSULIN ASPART (NovoLOG) 100 UNIT/ML VIAL SQ SCH ×2 (05:36→12:54)
[2018-06-25] MEDS: PANTOPRAZOLE 40 MG TABLET PO SCH (06:01)
[2018-06-25 06:37] LABS: Basophils % (A) 0 %; Eosinophils % (A) 0 %; HCT 42.9 % (39.0-53.0); Lymphocytes # (A) 0.7 k/uL (1.0-4.8); Lymphocytes % (A) 4 %; MCH 31.7 pg (25.0-35.0); MCHC 32.8 g/dL (31.0-37.0); MCV 96.9 fL (80.0-100.0); Mean Platelet Volume 6.2; Monocytes # (A) 0.7 k/uL (0-1.0); Monocytes % (A) 3 %; Neutrophils # (A) 18.2 k/uL (1.3-7.7); Neutrophils % (A) 92 %; Platelet Count 261 k/uL (150-450); RBC 4.42 m/uL (4.30-5.90); RDW 13.4 % (11.5-15.5); WBC 19.8 k/uL (3.8-10.6)
[2018-06-25 06:44] LABS: Anion Gap 6 mmol/L; Blood Urea Nitrogen 20 mg/dL (9-20); Calcium 8.7 mg/dL (8.4-10.2); Carbon Dioxide 20 mmol/L (22-30); Chloride 116 mmol/L (98-107); Glucose 149 mg/dL (74-99); Potassium 4.5 mmol/L (3.5-5.1); Sodium 142 mmol/L (137-145)
[2018-06-25] MEDS: BUDESONIDE 0.5 MG/2 ML NEBU INHALATION SCH (07:43)
[2018-06-25] MEDS: IPRATROPIUM-ALBUTEROL 3 ML NEB INHALATION SCH ×2 (07:43→11:47)
[2018-06-25] MEDS: METOPROLOL TARTRATE 50 MG TAB PO SCH (08:50)
[2018-06-25] MEDS: LISINOPRIL 2.5 MG TAB PO SCH (08:51)
[2018-06-25] MEDS: AZITHROMYCIN 500 MG TAB PO SCH (08:51)
[2018-06-25] MEDS: FINASTERIDE 5 MG TAB PO SCH (08:51)
[2018-06-25] MEDS: SPIRONOLACTONE 25 MG TAB PO SCH (08:51)
[2018-06-25] MEDS: CLOPIDOGREL 75 MG TAB PO SCH (08:51)
[2018-06-25] MEDS: guaiFENesin 600 MG TABLET.ER PO SCH (08:51)
[2018-06-25] MEDS: ASPIRIN 325 MG TAB PO SCH (08:53)
[2018-06-25] MEDS: methylPREDNISolone SOD SUCCI 40 MG/ML 1 ML VIAL IV SCH (08:54)
[2018-06-25] MEDS: HEPARIN SODIUM,PORCINE 5,000 UNIT/ML 1 ML VIAL SQ SCH (08:54)
[2018-06-25] MEDS: SODIUM CHLORIDE 0.9% 1,000 ML IV SCH (08:55)
--- NOTE | 2018-06-25 10:40 | P.PN ---
Subjective Progress Note Date: 06/25/18 This is a 68-year-old gentleman who presented to the emergency department from [facility]. The patient went to the hospital with a chief complaint of leg weakness and cough. He states that the last time he had weakness like this he was found to have a heart attack and he feels like his symptoms are the same. At the hospital he was found to have a fever and concerning EKG changes. The patient states in January of last year he had a heart attack and needed stents. He and his did quit smoking at that time. He used to smoke 2 packs per day for "many years." The patient states that over the last few days he did feel like he was getting sick at home. He did have fevers and chills at home. He does note that his grandson had a cold and he was exposed to him. He does have a history of COPD and "scarring due to asbestos." The patient does use a nebulizer at home and uses duo neb. He denies chest pain. The patient did have a chest x-ray this morning which showed interstitial changes, mild pulmonary vascular congestion, by basilar atelectasis and scarring. The patient states at home he was wheezing but it seems to improve with his breathing treatments. 06/25/2018: Patient seen and examined. Patient is on room air. He states he is feeling much better. He does continue to have sinus tachycardia. He denies shortness of breath. He has been afebrile. Chest x-ray is reviewed and shows possible developing left basilar infiltrate. Objective - Vital Signs Vital signs: Vital Signs Temp 97.5 F L 06/25/18 08:00 Pulse 123 H 06/25/18 08:00 Resp 20 06/25/18 08:00 BP 133/69 06/25/18 08:00 Pulse Ox 94 L 06/25/18 08:00 Intake & Output 06/24/18 06/25/18 06/25/18 18:59 06:59 18:59 Intake Total 1510 200 230 Output Total 350 200 Balance 1510 -150 30 Weight 83.6 kg Intake: Intake, IV Titration 850 Amount Sodium Chloride 0.9% 1, 800 000 ml @ 100 mls/hr IV . Q10H [facility] Rx#:[id number] cefTRIAXone 1 gm In 50 Sodium Chloride 0.9% 50 ml @ 100 mls/hr IVPB ONCE STA Rx#:[id number] Oral 660 200 230 Output: Urine 350 200 Other: Voiding Method Urinal Urinal Urinal Diaper # Voids 1 # Bowel Movements 1 - Exam Gen.: Patient is alert and oriented 3, no acute distress Cardiovascular: Regular rate and rhythm, S1/S2 Lungs: bilateral expiratory wheezing Abdomen: Soft nontender nondistended positive bowel sounds Extremities: No edema - Labs CBC & Chem 7: 06/25/18 06:10 06/25/18 06:10 Labs: Abnormal Lab Results - Last 24 Hours (Table) 06/24/18 06/24/18 06/24/18 Range/Units 11:15 16:17 20:31 WBC (3.8-10.6) k/uL Neutrophils # (1.3-7.7) k/uL Lymphocytes # (1.0-4.8) k/uL Chloride (98-107) mmol/L Carbon Dioxide (22-30) mmol/L Glucose (74-99) mg/dL POC Glucose (mg/dL) 164 H 138 H 168 H (75-99) mg/dL 06/25/18 06/25/18 06/25/18 Range/Units 05:26 06:10 06:10 WBC 19.8 H (3.8-10.6) k/uL Neutrophils # 18.2 H (1.3-7.7) k/uL Lymphocytes # 0.7 L (1.0-4.8) k/uL Chloride 116 H (98-107) mmol/L Carbon Dioxide 20 L (22-30) mmol/L Glucose 149 H (74-99) mg/dL POC Glucose (mg/dL) 135 H (75-99) mg/dL Microbiology - Last 24 Hours (Table) 06/23/18 15:33 Urine Culture - Final Urine,Catheterized 06/23/18 14:56 Blood Culture - Preliminary Blood No Growth after 24 hours Assessment and Plan Assessment: Acute hypoxic respiratory failure Acute exacerbation of COPD Tracheobronchitis, Possible developing left basilar infiltrate Chronic interstitial changes which are unchanged 4 out of 4 SIRS, sepsis Mild non-anion gap metabolic acidosis Hyperglycemia NSTEMI History of coronary artery disease, status post PCI Dyslipidemia History of tobacco abuse, in remission O2 to maintain saturation greater than or equal to 90% IV fluid hydration Blood, sputum, urine cultures Antibiotics: Azithromycin and Rocephin Pulmicort and duo nebs Singulair Mucinex Incentive spirometry and pulmonary hygiene Cardiology recommendations Solumedrol taper Flutter tx and IS
--- NOTE | 2018-06-25 11:07 | ECHOF ---
Referral Reason:ekg changes MEASUREMENTS -------- HEIGHT: 170.2 cm WEIGHT: 79.8 kg BP: 113/68 IVSd: 0.9 cm (0.6 - 1.1) LVIDd: 3.8 cm (3.9 - 5.3) LVPWd: 1.1 cm (0.6 - 1.1) IVSs: 1.4 cm LVIDs: 2.3 cm LVPWs: 1.6 cm LAESV Index (A-L): 16.58 ml/m Ao Diam: 3.7 cm (2.0 - 3.7) AV Cusp: 1.8 cm (1.5 - 2.6) LA Diam: 2.5 cm (2.7 - 3.8) MV E Daniel: 0.81 m/s MV DecT: 131 ms MV A Daniel: 1.12 m/s MV E/A Ratio: 0.72 AV maxP.05 mmHg AV meanP.68 mmHg RAP: 5.00 mmHg RVSP: 15.94 mmHg FINDINGS -------- Resting tachycardia (HR>100bpm). This was a technically difficult study with suboptimal views. The left ventricular size is normal. Left ventricular wall thickness is normal. Overall left vent ricular systolic function is mildly impaired with, an EF between 45 - 50 %. Mid to basal inferiorla teral is hypokinetic The right ventricle is normal in size and function. The left atrium is normal in size. The right atrium is normal in size. Lumason used Aortic valve is trileaflet and is mildly thickened. The mitral valve leaflets are mildly thickened. There is trace mitral regurgitation. Trace tricuspid regurgitation present. The right ventricular systolic pressure, as measured by Dopp ler, is 15.94mmHg. Pulmonic valve appears structurally normal. The aortic root size is normal. IVC Not well visulized. The pericardium is normal. CONCLUSIONS -------- 1. Resting tachycardia (HR>100bpm). 2. This was a technically difficult study with suboptimal views. 3. The left ventricular size is normal. 4. Left ventricular wall thickness is normal. 5. Overall left ventricular systolic function is mildly impaired with, an EF between 45 - 50 %. 6. Mid to basal inferiorlateral is hypokinetic 7. The right ventricle is normal in size and function. 8. The left atrium is normal in size. 9. The right atrium is normal in size. 10. Lumason used 11. Aortic valve is trileaflet and is mildly thickened. 12. The mitral valve leaflets are mildly thickened. 13. There is trace mitral regurgitation. 14. Trace tricuspid regurgitation present. 15. The right ventricular systolic pressure, as measured by Doppler, is 15.94mmHg. 16. Pulmonic valve appears structurally normal. 17. The aortic root size is normal. 18. IVC Not well visulized. 19. The pericardium is normal. FILTERATION OPERATOR: Jamaica Kee RDCS
[2018-06-25 11:38] LABS: Glucose,Whole Blood 113 mg/dL (75-99)
--- NOTE | 2018-06-25 11:51 | XR ---
EXAMINATION TYPE: XR chest 1V portable DATE OF EXAM: 06/25/2018 COMPARISON: 06/24/2018 HISTORY: Cough TECHNIQUE: Single frontal view of the chest is obtained. FINDINGS: Hyperinflation compatible COPD. Arthropathy of the shoulders. Heart mildly enlarged. Bilat eral areas of consolidation pleural effusion or thickening. Slight coarsening of the interstitium sta ble. IMPRESSION: Stable x-ray demonstrating findings of patchy infiltrate or atelectasis with tiny effusi ons. Mild underlying venous congestion felt less likely.
[2018-06-25 12:39] LABS: Hemoglobin A1C 5.6 % (4.0-6.0)
[2018-06-25 13:06] VITALS: BP 120/78; PULSE 88; TEMP 98
--- NOTE | 2018-06-25 14:40 | P.PN ---
Subjective Progress Note Date: 06/25/18 This is 68-year-old gentleman with history of smoking, COPD, coronary artery disease, hypertension, hyperlipidemia, who has history of a non-ST elevation GA in January of last year which time he underwent RCA stenting by Dr. Rodriguez. For the past 2 days prior to his admission here patient had been having a cough of yellow productive sputum, he's also noticed himself to be progressively more weak. He apparently experienced a fall, presented to [facility]. His initial EKG was questionable for an ST elevation GA for which he was transferred here and a cardiology consultation was obtained. Temperature had been running in the 103 range, and he is currently on antibiotics for possible upper respiratory infection. The patient was seen by Dr. Bardley Estrella in consultation, he did not feel that the patient was having any acute coronary event. An echocardiogram with Doppler study has been requested. Patient seen and examined today, sitting up in the chair at bedside. Repeat chest x-ray was performed today that showed interstitial changes and borderline heart size, possible mild pulmonary vascular congestion. There is an infiltrate may be present. 100/60 blood pressure with a heart rate in the 90s. No chest discomfort. 06/25/2018 Patient seen and examined this morning, overall feeling well. Blood pressure 120/70 with a heart rate in the 80s. Echocardiogram with Doppler study revealed an ejection fraction of 45-50%. Objective - Vital Signs Vital signs: Vital Signs Temp 98.0 F 06/25/18 12:00 Pulse 88 06/25/18 12:00 Resp 20 06/25/18 12:00 BP 120/78 06/25/18 12:00 Pulse Ox 96 06/25/18 12:00 Intake & Output 06/24/18 06/25/18 06/25/18 18:59 06:59 18:59 Intake Total 1510 200 230 Output Total 350 200 Balance 1510 -150 30 Weight 83.6 kg Intake: Intake, IV Titration 850 Amount Sodium Chloride 0.9% 1, 800 000 ml @ 100 mls/hr IV . Q10H [facility] Rx#:[id number] cefTRIAXone 1 gm In 50 Sodium Chloride 0.9% 50 ml @ 100 mls/hr IVPB ONCE STA Rx#:[id number] Oral 660 200 230 Output: Urine 350 200 Other: Voiding Method Urinal Urinal Urinal Diaper # Voids 1 # Bowel Movements 1 - Exam PHYSICAL EXAMINATION: GENERAL: 68-year-old gentleman in no acute distress at the time of my examination HEENT: Head is atraumatic, normocephalic. Pupils equal, round. Sclera anicteric. Conjunctiva are clear. Mucous membranes of the mouth are moist. Neck is supple. There is no elevated jugular venous pressure.] bruit is heard. HEART EXAMINATION: Heart S1, S2 normal. No murmur or gallop heard. CHEST EXAMINATION: On's reveal scattered coarse rhonchi and wheezing throughout. ABDOMEN: Soft, nontender. Bowel sounds are heard. No organomegaly noted. EXTREMITIES: 2+ peripheral pulses with no evidence of peripheral edema and no calf tenderness noted. NEUROLOGIC patient is awake, alert and oriented ?-3. . - Labs CBC & Chem 7: 06/25/18 06:10 06/25/18 06:10 Labs: Abnormal Lab Results - Last 24 Hours (Table) 06/24/18 06/24/18 06/25/18 Range/Units 16:17 20:31 05:26 WBC (3.8-10.6) k/uL Neutrophils # (1.3-7.7) k/uL Lymphocytes # (1.0-4.8) k/uL Chloride (98-107) mmol/L Carbon Dioxide (22-30) mmol/L Glucose (74-99) mg/dL POC Glucose (mg/dL) 138 H 168 H 135 H (75-99) mg/dL 06/25/18 06/25/18 06/25/18 Range/Units 06:10 06:10 11:19 WBC 19.8 H (3.8-10.6) k/uL Neutrophils # 18.2 H (1.3-7.7) k/uL Lymphocytes # 0.7 L (1.0-4.8) k/uL Chloride 116 H (98-107) mmol/L Carbon Dioxide 20 L (22-30) mmol/L Glucose 149 H (74-99) mg/dL POC Glucose (mg/dL) 113 H (75-99) mg/dL Microbiology - Last 24 Hours (Table) 06/24/18 23:45 Gram Stain - Preliminary Sputum 06/23/18 15:33 Urine Culture - Final Urine,Catheterized 06/23/18 14:56 Blood Culture - Preliminary Blood No Growth after 24 hours Assessment and Plan Plan: Assessment and plan #1 fever with possible acute tracheobronchitis and COPD exacerbation. Elevated white blood cell count influenza A and B- #2 tachycardia with no evidence of ST elevation #3 history of coronary artery disease with prior stent placement #4 hyperlipidemia #5 nicotine dependence history #6 hyperlipidemia Plan Echocardiogram with Doppler study revealed an EF of 45%. From cardiology's perspective, we'll follow this patient along with you now on an as-needed basis only, please don't hesitate to call with any questions. DNP note has been reviewed, I agree with a documented findings and plan of care. Patient was seen and examined.
--- NOTE | 2018-06-26 05:45 | DS ---
DISCHARGE SUMMARY DATE OF SERVICE: 06/25/2018. FINAL DIAGNOSES: 1. Fever, possible chronic obstructive pulmonary disease exacerbation with acute purulent tracheobronchitis. 2. Tachycardia with changes on EKG and QRS complexes. No change from the previous baseline per Cardiology. 3. Troponin indeterminate at 0.041. 4. History of coronary artery disease, stent. 5. Chronic obstructive pulmonary disease. 6. Hyperlipidemia history. 7. History of degenerative joint disease. 8. History of prostate disorder. 9. Remote history of nicotine dependence. 10.Increased WBC. 11.Increased random blood sugar. 12.NO CODE, NO CPR, NO VENT. DISCHARGE DISPOSITION: The patient will be discharged in stable condition with guarded prognosis. Total time taken 35 minutes. HISTORY OF PRESENT ILLNESS: This 68-year-old gentleman with a past medical history of multiple medical problems being followed by Dr. Urias in the outpatient setting from [facility] with complaints of fever and EKG changes. EKG showed tachycardia and ST changes. Cardiology evaluated the patient and thought that the changes were similar to the prior changes. So the patient was treated symptomatically and improved significantly. The patient was also seen by Dr. Shields during the hospitalization and the patient given antibiotics, steroids and bronchodilators. Patient improved significantly. On exam, vitals are stable. CARDIOVASCULAR: S1, S2 muffled. ABDOMEN: Soft. RESPIRATORY: A few scattered rhonchi. NERVOUS SYSTEM: No focal deficits. DISCHARGE ADVICE: 1. Diet is cardiac. 2. Activity limited until followup. 3. Follow up with Dr. Urias in 2 to 3 days. 4. Follow up with Dr. Shielsd as advised. Medications are as follows: 1. Albuterol p.r.n. 2. Plavix 75 mg p.o. daily. 3. Proscar 5 mg p.o. daily. 4. DuoNeb q.i.d. and p.r.n. 5. Lopressor 50 mg p.o. daily. 6. Aspirin 81 mg p.o. daily. 7. Lipitor 80 mg q.h.s. 8. Zithromax 500 mg daily for 5 days. 9. Symbicort 160/4.5 one puff b.i.d. 10.Ceftin 500 mg p.o. b.i.d. 11.Mucinex 1200 mg p.o. b.i.d. for 10 days. 12.Zestril 2.5 mg. 13.Singular 10 mg q.h.s. 14.Nitrostat 0.4 mg p.o. sublingual p.r.n. 15.Prednisone 40 mg daily for 3 days, 30 for 3 days, 20 for 3 days, 10 for 3 days. 16.Aldactone 25 mg p.o. daily. Follow up with Cardiology as recommended. The patient okay for discharge per Cardiology. MMODL / IJN: [id number] /
== END 2018-06-25 15:28 | disposition home or self-care (01) | DRG 871 ==
LOC: EC 14:27 → 3SCARD 17:13
PROVIDERS: ADMIT Hospitalist; ATTEND Hospitalist
DX: A41.9 Sepsis, unspecified organism (principal); J96.01 Acute respiratory failure with hypoxia; E87.2 Acidosis; J44.1 Chronic obstructive pulmonary disease with (acute) exacerbation; J44.0 Chronic obstructive pulmonary disease with (acute) lower respiratory infection; J20.9 Acute bronchitis, unspecified; J98.11 Atelectasis; E78.00 Pure hypercholesterolemia, unspecified; E78.5 Hyperlipidemia, unspecified; F17.200 Nicotine dependence, unspecified, uncomplicated; I10 Essential (primary) hypertension; I25.10 Atherosclerotic heart disease of native coronary artery without angina pectoris; I25.2 Old myocardial infarction; Z79.02 Long term (current) use of antithrombotics/antiplatelets; Z79.82 Long term (current) use of aspirin; Z79.899 Other long term (current) drug therapy; Z82.49 Family history of ischemic heart disease and other diseases of the circulatory system; Z95.5 Presence of coronary angioplasty implant and graft; R73.9 Hyperglycemia, unspecified
CPT/HCPCS: 36415; 71045; 71046; 80048; 80053; 80061; 81003; 82550; 82553; 83036; 83605; 83880; 84484; 85025; 85610; 85730; 87040; 87070; 87086; 87205; 87502; 93005; 93306; 94640; 94760; 96361; 96365; 96375; 99285

== ENCOUNTER → 2019-12-12 | Outpatient (CLI) | payer MEDICARE ==
--- NOTE | 2019-12-12 12:51 | MR ---
EXAMINATION TYPE: MR brain wo/w con DATE OF EXAM: 12/12/2019 COMPARISON: NONE HISTORY: abnormalities of gait, Loosing control of legs, weakness. TECHNIQUE: Multiplanar, multisequence images of the brain and brainstem is performed without and with IV contras t, utilizing 8 mL intravenous Gadavist . FINDINGS: Diffusion weighted images demonstrate no evidence of a recent infarct or other diffusion ab normality. There is no worrisome extra-axial fluid collection. There is diffuse ventricular and sulc al prominence. Degree of ventricular dilatation slightly out of proportion to degree of sulcal efface ment. There are focal and confluent areas of T2 hyperintensity in the deep and periventricular white matter. Midline structures demonstrate normal morphology. The craniocervical junction appears within normal limits. Post contrast images demonstrate no abnormal enhancement. The dural venous sinuses appear pa tent. The visualized sinuses are clear and the globes are intact. IMPRESSION: Mild to moderate diffuse cerebral atrophy and moderate to borderline advanced chronic sma ll vessel ischemic change suspected. Cannot exclude underlying normal pressure hydrocephalus. Correla te clinically. Correlation with old outside CT and/or MRI would be beneficial to assess if there has been recent change in ventricular size.
== END | disposition home or self-care (01) ==
LOC: RADMRIMAIN 11:42
PROVIDERS: ATTEND Family Medicine
DX: R26.89 Other abnormalities of gait and mobility (principal)
CPT/HCPCS: 70553; A9585

== ENCOUNTER → 2019-12-24 | Outpatient (CLI) | payer MEDICARE ==
[2019-12-24 18:47] LABS: African American GFR (CKD) 70.1 (60.0-200.0); Anion Gap 8.1 mmol/L (4.00-12.00); BUN/Creat Ratio 17.5 Ratio (12.00-20.00); Calcium 8.7 mg/dL (8.7-10.3); Carbon Dioxide 25.9 mmol/L (21.6-31.8); Non-African American GFR(CKD) 60.5 (60.0-200.0); Potassium 4.7 mmol/L (3.5-5.5); Total Protein 5.7 g/dL (6.2-8.2)
[2019-12-24 18:48] LABS: Albumin/Globulin Ratio 2.35 (1.60-3.17); Chol/HDL Ratio 1.98; Globulin 1.7 g/dL (1.6-3.3); Total Bilirubin 0.5 mg/dL (0.2-1.2)
== END | disposition home or self-care (01) ==
LOC: LABWHC1 10:12
PROVIDERS: ATTEND Nurse Practitioner Adult Health
DX: E78.2 Mixed hyperlipidemia (principal)
CPT/HCPCS: 36415; 80053; 80061

== ENCOUNTER 2020-03-19 07:07 | Day surgery (SDC) | payer MEDICARE ==
[2020-03-17 11:51] VITALS: BMI 27.3
[~2020-03-19 07:07] MED LIST: ALPRAZolam 0.25 MG TAB PO PRN; ALPRAZolam 0.5 MG TAB PO PRN; ASPIRIN 325 MG TAB PO ONE; ATORVASTATIN 80 MG TAB PO ONE; NITROGLYCERIN SL TABS 0.4 MG TAB SUBLINGUAL PRN; SODIUM CHLORIDE 0.9% 1,000 ML in EMPTY BAG 1 BAG IV ONE
[2020-03-19] MEDS ORDERED: LIDOCAINE 1% INJ 10MG/ML (20 ML MDV) ONE (07:16)
[2020-03-19] MEDS ORDERED: VERAPAMIL 2.5 MG/ML 2 ML AMP ONE (07:16)
[2020-03-19 07:30] VITALS: RESP 16; TEMP 97.5
[2020-03-19] MEDS ORDERED: SODIUM CHLORIDE 0.9% 1,000 ML IV ONE (07:30)
[2020-03-19] MEDS ORDERED: fentaNYL (PF) 50 MCG/ML 2 ML AMP ONE (07:40)
[2020-03-19 07:44] LABS: Basophils # (A) 0.1 k/uL (0-0.2); Basophils % (A) 2 %; Eosinophils # (A) 0.6 k/uL (0-0.7); Eosinophils % (A) 7 %; HCT 46.7 % (39.0-53.0); HGB 15.4 gm/dL (13.0-17.5); Lymphocytes % (A) 25 %; MCH 31.9 pg (25.0-35.0); MCHC 32.9 g/dL (31.0-37.0); Monocytes # (A) 0.6 k/uL (0-1.0); Monocytes % (A) 8 %; Neutrophils # (A) 4.3 k/uL (1.3-7.7); Neutrophils % (A) 55 %; Platelet Count 282 k/uL (150-450); RBC 4.82 m/uL (4.30-5.90); RDW 13.1 % (11.5-15.5); WBC 7.8 k/uL (3.8-10.6)
[2020-03-19] MEDS ORDERED: fentaNYL (PF) 50 MCG/ML 2 ML AMP IVP ONE (07:55)
[2020-03-19] MEDS ORDERED: LIDOCAINE 1% INJ 10MG/ML (20 ML MDV) SQ ONE (07:56)
[2020-03-19] MEDS ORDERED: HEPARIN SODIUM 1,000 UN/ML (10ML VL) IV ONE (07:58)
[2020-03-19] MEDS ORDERED: VERAPAMIL SYRINGE (5 MG/10 ML) INTRAARTER ONE (07:58)
[2020-03-19] MEDS ORDERED: HEPARIN SODIUM 1,000 UN/ML (10ML VL) ONE (08:00)
[2020-03-19] MEDS ORDERED: IOPAMIDOL-370 125ML BTL INJ ONE (08:17)
[2020-03-19] MEDS ORDERED: IOPAMIDOL-370 50ML BTL INJ ONE (08:17)
[2020-03-19] MEDS ORDERED: RX INFO: IV CONTRAST WAS GIVEN 1 EACH MISC MISCELLANE PRN (08:32)
[2020-03-19] MEDS ORDERED: NITROGLYCERIN SL TABS 0.4 MG TAB SUBLINGUAL PRN (08:32)
[2020-03-19 08:35] LABS: Calcium 8.6 mg/dL (8.4-10.2); Potassium 4.8 mmol/L (3.5-5.1)
[2020-03-19] MEDS ORDERED: SODIUM CHLORIDE 0.9% 1,000 ML IV SCH (08:45)
--- NOTE | 2020-03-19 09:53 | CC ---
CARDIAC CATHETERIZATION REPORT Mr. Nix is a 70-year-old male with known history of hypertension, hyperlipidemia, history of coronary artery disease status post myocardial infarction in the inferior wall and stenting of the right coronary artery in 2019 who recently underwent a myocardial perfusion imaging that revealed a drop in the his ejection fraction with an inferior wall defect. In view of that, recommendation made regarding cardiac catheterization. The procedures, risks, and complication were discussed with the patient who is in full understanding and agreement. PROCEDURE: Patient was brought to the electrical laboratory technician in a fasting semi-sedated state after receiving fentanyl and Benadryl and achieving moderate conscious sedated state. Using Xylocaine anesthesia, using Seldinger technique, a 6-Mongolian sheath was introduced in the right radial artery. Selective right and left coronary angiography performed using 6-Mongolian AL1 guiding catheter to cannulate the right coronary artery and a 5-Mongolian 3 and have bend left Gypsy catheter. Multiple views of the coronary artery including sharon-axial views were obtained. Following that, a 5-Mongolian tight pigtail catheter was introduced into the left ventricle and a 30-degree THOMPSON view of the left ventricle was obtained. Following that, catheter and sheaths were removed. Hemostasis was obtained with deployment of a TR band. There was no complication. Patient is returned to his room in stable condition. Of note, the patient received 4500 units of intravenous heparin as well as intra-arterial verapamil. FINDINGS: LEFT MAIN: This is a short size vessel, bifurcating into left circumflex, left anterior descending artery. Left main coronary artery has no evidence of high-grade stenosis. LEFT ANTERIOR DESCENDING ARTERY: This is a large-sized vessel, reaching toward the apex with a wraparound apex segment. The left main artery gives rise to 2 diagonal branches of small to moderate caliber. The left anterior descending artery and its branches have no evidence of obstructive disease. LEFT CIRCUMFLEX: This is a nondominant vessel, giving rise to 2 obtuse marginal branches. The left circumflex as well as branches have no evidence of obstructive lung disease. RIGHT CORONARY ARTERY: This is a large dominant vessel, bifurcating distally into PDA and posterolateral segment branches. The stented segment in the distal right coronary artery is patent. There is a 20% in-stent restenosis. The rest of the vessel has mild disease without any evidence of high-grade stenosis. The PLV reaches toward the lateral apical wall. LEFT VENTRICULOGRAM: Left ventriculogram is performed in 30-degree THOMPSON view and revealed a normal size. There was mid inferior wall akinesis. The ejection fraction is estimated at 40%. There was 2+ mitral regurgitation. HEMODYNAMICS: There was no gradient across the aortic valve. The left ventricular end- diastolic pressure was 18-20 mmHg. CONCLUSION: 1. Patent stent to the right coronary artery with mild intimal restenosis. 2. No evidence of significant obstructive disease in the LAD and left circumflex. 3. Moderately severely impaired left ventricular systolic function with 2+ mitral regurgitation. RECOMMENDATION: In view of finding anatomy, I recommend continue medical therapy with aggressive risk modification that has been initiated and following his left ventricular systolic function. Those findings and recommendation were discussed with the patient his family was in agreement. Duration of sedation is 23 minutes. MMODL / IJN: [id number] /
--- NOTE | 2020-03-19 09:56 | LTR ---
DATE OF SERVICE: 03/19/2020 RE: Boyd Yobani Dear Dr. Urias; I had the pleasure to perform cardiac catheterization on Mr. Nix at [facility] on March 19, 2020 and a full copy of the procedure note will be forwarded to you. In brief, he was found to have no evidence of significant restenosis in the stented area and the right coronary artery with mild to severely impaired left ventricular systolic function consistent with his prior myocardial infarction. Based on those findings, I recommend continued medical therapy with aggressive risk modification that has been initiated. Thank you again for allowing me to participate in this patient's care. Please feel free to call for any questions. Sincerely yours, MD JUAN KendallL / REGISN: [id number] /
[2020-03-19] MEDS ORDERED: CARBIDOPA-LEVODOPA 25-100 MG 1 EACH TAB PO SCH (13:00)
[2020-03-19 13:21] VITALS: BP 109/58; PULSE 62
[2020-03-19] MEDS ORDERED: IPRATROPIUM-ALBUTEROL 3 ML NEB INHALATION SCH (20:00)
[2020-03-19] MEDS ORDERED: MONTELUKAST 10 MG TAB PO SCH (21:00)
[2020-03-19] MEDS ORDERED: METOPROLOL TARTRATE 25 MG TAB PO SCH (21:00)
[2020-03-19] MEDS ORDERED: ATORVASTATIN 80 MG TAB PO SCH (21:00)
[2020-03-20] MEDS ORDERED: FINASTERIDE 5 MG TAB PO SCH (09:00)
[2020-03-20] MEDS ORDERED: OXYBUTYNIN CHLORIDE 5 MG TAB PO SCH (09:00)
[2020-03-20] MEDS ORDERED: CLOPIDOGREL 75 MG TAB PO SCH (09:00)
[2020-03-20] MEDS ORDERED: ASPIRIN 81 MG PO SCH (09:00)
[2020-03-20] MEDS ORDERED: SPIRONOLACTONE 25 MG TAB PO SCH (09:00)
== END 2020-03-19 13:07 | disposition home or self-care (01) ==
LOC: CATHCVL 07:07
PROVIDERS: ATTEND Internal Medicine Interventional Cardiology
DX: I25.10 Atherosclerotic heart disease of native coronary artery without angina pectoris (principal); T82.855A Stenosis of coronary artery stent, initial encounter; I34.0 Nonrheumatic mitral (valve) insufficiency; R94.39 Abnormal result of other cardiovascular function study; I10 Essential (primary) hypertension; E78.2 Mixed hyperlipidemia; I25.5 Ischemic cardiomyopathy; I25.2 Old myocardial infarction; G20 Parkinson's disease; F02.80 Dementia in other diseases classified elsewhere, unspecified severity, without behavioral disturbance, psychotic disturbance, mood disturbance, and anxiety; R26.9 Unspecified abnormalities of gait and mobility; Z79.899 Other long term (current) drug therapy; Z79.82 Long term (current) use of aspirin; Z79.02 Long term (current) use of antithrombotics/antiplatelets; Z86.19 Personal history of other infectious and parasitic diseases; Z79.51 Long term (current) use of inhaled steroids; Z90.89 Acquired absence of other organs; Z87.891 Personal history of nicotine dependence; Z82.49 Family history of ischemic heart disease and other diseases of the circulatory system
CPT/HCPCS: 93458; 80048; 85025; C1769 ×2; C1887; C1894; J2001; J3010; J1644; Q9967 ×2

== ENCOUNTER → 2020-08-05 | Outpatient (CLI) | payer MEDICARE ==
--- NOTE | 2020-08-05 14:52 | MR ---
EXAMINATION TYPE: MR cervical spine wo con DATE OF EXAM: 08/05/2020 COMPARISON: None HISTORY: Abnormal Gait, Headaches CONTRAST: Performed utilizing 0 mL intravenous Gadavist gadolinium contrast. TECHNIQUE: Multiplanar multiecho imaging on a 3.0 Caroline magnet is performed through the cervical spin e. FINDINGS: The craniovertebral junction is normal. Vertebral body alignment is kyphotic centered at C 4-5. There is some patchy marrow signal throughout the cervical spine. Disc desiccation is present. Mild disc height loss is present C5-6. Anterior vertebral body spurring is present C5-C7. C7-T1: Left paracentral disc bulge is present with mild anterior thecal sac compression. No AP spina l canal stenosis is present. There may be some contact with the anterior exiting nerve root. C6-7: Mild broad-based disc bulge is present with anterior thecal sac flattening. This may be slightl y greater to the right paracentral region. No AP spinal canal stenosis is present. Uncovertebral join t hypertrophy is present with moderate right and mild left foraminal narrowing. C5-6: Left and right paracentral disc bulging is present. This may be slightly greater to the right p aracentral region. This has moderate anterior thecal sac compression. Cord contact is present. Some c ord deformity is present. No AP spinal canal stenosis present. Uncovertebral joint hypertrophy is sev ere bilateral foraminal narrowing.. C4-5: There is a tiny central protrusion. No cord contact or spinal canal stenosis is present. This c ould be associated with some minimal endplate spurring. Neural foramen appear patent.. C3-4: No focal disc herniation or significant disc bulge is evident. No spinal canal stenosis present . Uncovertebral joint hypertrophy is mild bilateral foraminal narrowing C2-3: No focal disc herniation or significant disc bulge is evident. No spinal canal stenosis or brigette ral foraminal stenosis is present. IMPRESSIONS: 1. Left and right paracentral disc bulging C5-6 has some cord contact and cord deformity. No spinal c anal stenosis is present. 2. Disc bulging at C6-7 and C7-T1. 3. Cervical kyphosis centered at C4-5
== END | disposition home or self-care (01) ==
LOC: RADMRIMAIN 11:19
PROVIDERS: ATTEND Psychiatry & Neurology Neurology
DX: M50.222 Other cervical disc displacement at C5-C6 level (principal); M50.223 Other cervical disc displacement at C6-C7 level; M50.23 Other cervical disc displacement, cervicothoracic region
CPT/HCPCS: 72141

== ENCOUNTER 2022-10-23 15:21 | Emergency (ER) | payer OTHER, MEDICARE ==
[2022-10-23 15:42] VITALS: PULSE 54; TEMP 98.7
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
[2022-10-23 16:56] LABS: Basophils % (A) 0 %; Eosinophils # (A) 0.6 k/uL (0-0.7); Eosinophils % (A) 6 %; HCT 49.3 % (39.0-53.0); HGB 15.6 gm/dL (13.0-17.5); Lymphocytes # (A) 2.4 k/uL (1.0-4.8); Lymphocytes % (A) 25 %; MCH 31.7 pg (25.0-35.0); MCHC 31.7 g/dL (31.0-37.0); Mean Platelet Volume 7.1; Monocytes # (A) 0.8 k/uL (0-1.0); Monocytes % (A) 8 %; Neutrophils # (A) 5.7 k/uL (1.3-7.7); Neutrophils % (A) 59 %; Platelet Count 291 k/uL (150-450); RBC 4.94 m/uL (4.30-5.90); RDW 13.3 % (11.5-15.5); WBC 9.7 k/uL (3.8-10.6)
--- NOTE | 2022-10-23 17:00 | XR ---
EXAMINATION TYPE: XR chest 2V DATE OF EXAM: 10/23/2022 4:55 PM COMPARISON: Chest radiographs from 06/23/2018 TECHNIQUE: XR chest 2V Frontal and lateral views of the chest. CLINICAL INDICATION:Male, 72 years old with history of difficulty breathing; FINDINGS: Lungs/Pleura: There is no evidence of pleural effusion, focal consolidation, or pneumothorax. Pulmonary vascularity: Unremarkable. Heart/mediastinum: Cardiomediastinal silhouette is prominent in size. Musculoskeletal: No acute osseous pathology. IMPRESSION: No acute cardiopulmonary disease/process.
[2022-10-23 17:07] LABS: ALT 15 U/L (4-49); AST 29 U/L (17-59); African American GFR (CKD) 72 (>60 ml/min/1.73 sqM); Albumin 3.5 g/dL (3.5-5.0); Alkaline Phosphatase 85 U/L (38-126); Anion Gap 5 mmol/L; Blood Urea Nitrogen 28 mg/dL (9-20); Calcium 8.4 mg/dL (8.4-10.2); Carbon Dioxide 30 mmol/L (22-30); Chloride 104 mmol/L (98-107); Glucose 93 mg/dL (74-99); Non-African American GFR(CKD) 62 (>60 ml/min/1.73 sqM); Potassium 4.6 mmol/L (3.5-5.1); Sodium 139 mmol/L (137-145); Total Bilirubin 0.7 mg/dL (0.2-1.3); Total Protein 5.9 g/dL (6.3-8.2)
[2022-10-23 17:12] LABS: Partial Thromboplastin Time 22.5 sec (22.0-30.0); Prothrombin Time 10.2 sec (9.0-12.0)
[2022-10-23] MEDS ORDERED: IPRATROPIUM-ALBUTEROL 3 ML NEB INHALATION STA (18:04)
[2022-10-23] MEDS ORDERED: predniSONE 20 MG TAB PO STA (18:04)
[2022-10-23] MEDS ORDERED: ALBUTEROL NEBULIZED 2.5 MG/3 ML INHALATION STA (18:05)
[2022-10-23 18:39] VITALS: BP 154/93; RESP 18
== END 2022-10-23 19:46 | disposition home or self-care (01) ==
LOC: EEVIPCON 15:21 → EC 15:21
DX: J44.1 Chronic obstructive pulmonary disease with (acute) exacerbation (principal); I25.10 Atherosclerotic heart disease of native coronary artery without angina pectoris; I25.2 Old myocardial infarction; Z20.822 Contact with and (suspected) exposure to COVID-19; Z79.899 Other long term (current) drug therapy; Z87.891 Personal history of nicotine dependence; Z95.5 Presence of coronary angioplasty implant and graft
CPT/HCPCS: 36415; 93005; 85379; 83880; 80053; 83605; 84484; 85025; 85610; 85730; 87636; 71046; 99285; J7512

== ENCOUNTER 2023-04-11 12:15 | Emergency (ER) | payer OTHER, MEDICARE ==
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
[2023-04-11 13:37] LABS: Basophils # (A) 0.1 k/uL (0-0.2); Basophils % (A) 1 %; Eosinophils # (A) 0.1 k/uL (0-0.7); Eosinophils % (A) 2 %; HCT 46.6 % (39.0-53.0); HGB 15.2 gm/dL (13.0-17.5); Lymphocytes # (A) 0.9 k/uL (1.0-4.8); Lymphocytes % (A) 10 %; MCH 32.3 pg (25.0-35.0); MCHC 32.7 g/dL (31.0-37.0); MCV 98.8 fL (80.0-100.0); Monocytes # (A) 0.9 k/uL (0-1.0); Monocytes % (A) 10 %; Neutrophils # (A) 6.4 k/uL (1.3-7.7); Neutrophils % (A) 74 %; Platelet Count 239 k/uL (150-450); RBC 4.72 m/uL (4.30-5.90); RDW 13.9 % (11.5-15.5); WBC 8.7 k/uL (3.8-10.6)
[2023-04-11 13:44] LABS: ALT 32 U/L (4-49); AST 67 U/L (17-59); African American GFR (CKD) 69 (>60 ml/min/1.73 sqM); Albumin 3.6 g/dL (3.5-5.0); Alkaline Phosphatase 80 U/L (38-126); Anion Gap 10 mmol/L; Blood Urea Nitrogen 23 mg/dL (9-20); Calcium 8.5 mg/dL (8.4-10.2); Carbon Dioxide 27 mmol/L (22-30); Chloride 103 mmol/L (98-107); Glucose 91 mg/dL (74-99); Non-African American GFR(CKD) 60 (>60 ml/min/1.73 sqM); Potassium 4.1 mmol/L (3.5-5.1); Sodium 140 mmol/L (137-145); Total Bilirubin 0.6 mg/dL (0.2-1.3); Total Protein 6.1 g/dL (6.3-8.2)
[2023-04-11 13:58] LABS: Creatine Kinase 1007 U/L (55-170)
--- NOTE | 2023-04-11 14:50 | XR ---
EXAMINATION TYPE: XR chest 2V DATE OF EXAM: 04/11/2023 COMPARISON: 10/23/2022 TECHNIQUE: PA and lateral views submitted. HISTORY: Fever and cough FINDINGS: Emphysematous changes with limited inspiration. Linear scar atelectasis left midlung.. Heart size no rmal and no overt failure. Osseous structures demonstrate hypertrophic and degenerative changes of th e spine. IMPRESSION: 1. No acute process. 2. COPD with discoid atelectasis or scar favored over pneumonia within the left upper lobe.
[2023-04-11 15:27] VITALS: BP 112/66; PULSE 80; RESP 20; TEMP 99.2
== END 2023-04-11 15:16 | disposition home or self-care (01) ==
LOC: EC 12:15 → EEVIPCON 12:15 → EC 15:16
DX: U07.1 COVID-19 (principal); I25.10 Atherosclerotic heart disease of native coronary artery without angina pectoris; J44.9 Chronic obstructive pulmonary disease, unspecified; I10 Essential (primary) hypertension; I25.2 Old myocardial infarction; M19.90 Unspecified osteoarthritis, unspecified site; Z87.891 Personal history of nicotine dependence; Z79.1 Long term (current) use of non-steroidal anti-inflammatories (NSAID)
CPT/HCPCS: 36415; 71046; 80053; 82550; 85025; 87636; 99283

== ENCOUNTER 2023-12-18 11:48 | Emergency (ER) | payer OTHER, MEDICARE ==
[2023-12-18] MEDS ORDERED: methylPREDNISolone SOD SUCCI 125 MG/2 ML VIAL ONE (12:42)
[2023-12-18] MEDS ORDERED: IPRATROPIUM-ALBUTEROL 3 ML NEB ONE ×2 (12:43→15:10)
[2023-12-18] MEDS ORDERED: cefTRIAXone IN SWFI 1,000 MG/10 ML SYRINGE IVP ONE (16:13)
--- NOTE | 2024-01-18 11:10 | XR ---
Patient Yobani Nix ID [id number] DO EXAMINATION TYPE: XR chest 2V DATE OF EXAM: 12/18/2023 COMPARISON: No comparison images available during PACS downtime INDICATION: Short of breath TECHNIQUE: Frontal and lateral views of the chest are obtained. FINDINGS: The heart size is prominent. The pulmonary vasculature is upper limits for normal. Mild diffuse increased lung markings are present slightly greater at the left lung base. Correlate fo r pneumonia. Consider atypical pulmonary edema.. IMPRESSION: 1. Prominent heart and somewhat prominent pulmonary vascular markings with a left lower lobe infiltra te. Correlate for congestive heart failure. Pneumonia and atelectasis should be considered within the differential. Follow-up is recommended.
== END 2023-12-18 16:10 | disposition home or self-care (01) ==
LOC: EC 11:48
DX: R06.00 Dyspnea, unspecified
CPT/HCPCS: 71046; 93005; 94640; 99285